=== PATIENT | female | born 1995 | race Caucasian/White ===

== ENCOUNTER → 2021-04-14 14:08 | Outpatient (BNVA) | payer OTHER, SELFPAY | PROVIDERS: Visit Provider Obstetrics & Gynecology | DX: O09.32 Supervision of pregnancy with insufficient antenatal care, second trimester (principal); Z3A.00 Weeks of gestation of pregnancy not specified | CPT/HCPCS: 80307; 83036; 84315; 85027; 86592; 86762; 86803; 86850; 86900; 87086; 87340; 87491; 87591; 87806 ==

== ENCOUNTER 2021-04-15 15:26 | Emergency (ER) | payer OTHER, SELFPAY ==
[2021-04-15 15:49] VITALS: BP 118/77; PULSE 75; RESP 18; TEMP 36.4; O2SAT 97; BMI 40.5
--- NOTE | 2021-04-15 16:54 | W.ED.BACK ---
HPI - Back Pain/Injury General: Chief Complaint: Back Pain/Injury Stated Complaint: 18 WKS PREG: FELL THIS AM,SHARP PAINS;P/OB SEE ER Time Seen by Provider: 04/15/21 16:54 History of Present Illness: HPI Narrative: 26-year-old female comes in today for concerns of low back pain and cramping after tripping over her dog this morning. Patient is 18 weeks . Patient reports that she has been feeling the fetus move. Patient came in due to her back pain. Patient contacted her [employer] OFFICER who recommended she be evaluated in the ER. Patient denies any abnormal bleeding or abnormal discharge from her vaginal area. This is patient's eighth with 5 live births. Review of Systems General: Reports: 10 or more systems reviewed and unremarkable except in HPI and below Musc: Reports: back pain PFS ED PFSH: Medical History (Updated 04/15/21 @ 17:12 by DEO Porter) Psychiatric care Family History (Updated 04/14/21 @ 14:15 by Joanna Ivory RN) Grandmother Clotting disorder maternal Grandfather Heart disease maternal great Denies family history of Colon cancer Ovarian cancer Diabetes Hyperlipidemia Breast cancer Anesthesia complication Bleeding disorder Hypertension Uterine cancer Thyroid condition Stroke Physical Exam Const: COMMON NORMALS: no acute distress and patient oriented x3 GENERAL APPEARANCE: cooperative HENMT: COMMON NORMALS: normocephalic HEAD & SCALP: normal to inspection and normocephalic MOUTH: Normal oral and palatal mucosa present Eye: GENERAL EYE: appearance normal, both eyes and all related structures Neck/C-Spine: COMMON NORMALS: full ROM Chest: COMMONS NORMALS: normal inspection of the chest Resp: COMMON NORMALS: normal respiratory effort EFFORT & INSPECTION: Yes able to speak in complete sentences Cardio: COMMON NORMALS: regular rate and regular rhythm RATE: regular rate RHYTHM: regular rhythm GI: COMMON NORMALS: non-tender : COMMON NORMALS: Yes no CVA tenderness BLADDER/KIDNEY EXAM: Yes no CVA tenderness Back/Pelvis: COMMON NORMALS: no CVA tenderness THORACIC SPINE/UPPER BACK: Yes normal to inspection LUMBAR SPINE/LOWER BACK: No lumbar spinal tenderness and Yes paraspinal muscle tenderness Extremity: COMMON NORMALS: normal to inspection Neuro: COMMON NORMALS: patient oriented x3 and moves all extremities Psych: COMMON NORMALS: mental status grossly normal and cooperative Skin: COMMON NORMALS: no rashes or lesions noted GENERAL SKIN EXAM: no rashes or lesions noted Course Vital Signs: Vital signs: Vital Signs Temperature 97.6 F 04/15/21 15:49 Pulse Rate 75 04/15/21 15:49 Respiratory Rate 18 04/15/21 15:49 Blood Pressure 118/77 04/15/21 15:49 Pulse Oximetry 97 04/15/21 15:49 MDM - Back Pain/Injury MDM Narrative: Medical decision making narrative: 26-year-old female comes in today with complaints of low back pain. Patient is 18 weeks and had tripped over her dog this morning. On exam patient has muscle tenderness but no midline spinal tenderness. heart tones were 140. Patient denies any vaginal bleeding or discharge. Differential diagnosis includes intervertebral disc injury, muscle strain, contusion. No spinal tenderness was noted I do not suspect a vertebral fracture or disc injury. Patient has mainly muscle pain. I reviewed the exam with patient with reassurance that the baby is very protected. I recommended that she monitor for abnormal discharge and bleeding and contractions. heart tones were 140 which was a good result for the age. Patient was recommended use ice and heat along with Tylenol for her pain. Patient was given 7 tablets of hydrocodone and a prescription for severe pain. No prior narcotic prescriptions were noted in the chart. Patient reported understanding of care plan and need for follow-up. Discharge Plan Discharge Patient Disposition: Home Clinical Impression: Fall on same level from tripping, Back pain affecting in second trimester Condition: Stable Prescriptions: New hydrocodone-acetaminophen 5-325 mg tablet 1 tab PO Q8H PRN (Reason: pain) Qty: 7 RF: 0 No Action One-A-Day -1 27 mg iron- 800 mcg-235 mg capsule PO RF: 0 Iron PO DAILY RF: 0 Discharge Orders: Discharge ED (Routine); Ordered 04/15/21 Ordered By: Mason Mcknight Discharge Diet: Usual diet Discharge Activity: Increase activity as tolerated Patient Instructions: Back Pain in Children (ED), Opioid Safety Activity Restrictions/Additional Instructions: Activity as tolerated. Use acetaminophen, 1000 mg every 8 hours, and ice or heat for pain relief. Gentle stretching and range of motion exercises. Use of hydrocodone tablet as needed for severe pain. Make sure to drink plenty of water with medication. Follow-up with [employer]ER for further instruction. Return to the ER for contractions, vaginal bleeding, or new concerns. Coding Level of Care Code ED Patented Hogshead Assembler for Markel Palacios
[2021-04-15] MEDS: HYDROcodone-acetaminophen 5-325 mg Tablet 1 TAB PO (17:49)
== END 2021-04-15 17:50 | disposition home or self-care (01) ==
PROVIDERS: Emergency Provider Nurse Practitioner Family
DX: O26.892 Other specified pregnancy related conditions, second trimester (principal); M54.50 Low back pain, unspecified; Z3A.18 18 weeks gestation of pregnancy; W01.0XXA Fall on same level from slipping, tripping and stumbling without subsequent striking against object, initial encounter
CPT/HCPCS: 99283

== ENCOUNTER 2021-05-02 11:06 | Emergency (ER) | payer OTHER, SELFPAY ==
--- NOTE | 2021-05-02 11:22 | ED_ITS ---
Documented by User: LEXY Kovacs 05/02/21 11:41 HPI - Fall General: Chief Complaint: Fall Stated Complaint: Fell; 21 weeks Time Seen by Provider: 05/02/21 11:31 Source: patient Mode of arrival: ambulatory Limitations: no limitations History of Present Illness: HPI Narrative: Patient is a 26-year-old female approximately 21 weeks here for evaluation following a fall. Patient states this morning she fell on a wet floor and fell onto her right side. She is complaining of right abdominal discomfort. She has a small amount of right rib pain and right hip pain. Patient has been ambulatory on the extremity without difficulty. She denies striking her head or LOC. No neck or back pain. MD complaint: fall Onset (ago): hour(s) Fall from: standing Fall witnessed: yes, by family Place fall occurred: home Loss of consciousness: None Prolonged down time: no Symptoms prior to fall: none Context: tripped/slipped Severity: mild Associated symptoms-after fall: Reports abdominal pain and chest pain (mild R rib pain); Denies difficulty walking, headache(s), lightheadedness or neck pain Review of Systems Card: Reports: chest pain (mild R rib pain); Denies: palpitations, irregular heart rhythm, edema, lightheadedness, syncope or pre-syncope Resp: Denies: dyspnea, productive cough, non-productive cough, wheezing, hemoptysis or chest congestion GI: Reports: abdominal pain; Denies: nausea, vomiting or diarrhea : Denies: flank pain Musc: Reports: joint pain (mild R hip pain); Denies: neck pain, back pain, extremity pain or limited range of motion Neuro: Denies: headache(s), numbness in extremities, weakness in extremities, sensory changes or difficulty walking [facility] ED PFSH: Medical History (Updated 05/02/21 @ 11:23 by LEXY Kovacs) Psychiatric care Family History (Updated 04/14/21 @ 14:15 by Joanna Ivory RN) Grandmother Clotting disorder maternal Grandfather Heart disease maternal great Denies family history of Colon cancer Ovarian cancer Diabetes Hyperlipidemia Breast cancer Anesthesia complication Bleeding disorder Hypertension Uterine cancer Thyroid condition Stroke Physical Exam Const: COMMON NORMALS: no acute distress, patient oriented x3, no limitations and alert NUTRITIONAL APPEARANCE: obese ORIENTATION/CONSCIOUSNESS: Yes awake, Yes oriented to person, Yes oriented to place and Yes oriented to time HENMT: COMMON NORMALS: normocephalic and atraumatic HEAD & SCALP: normocephalic and atraumatic Chest: COMMONS NORMALS: normal inspection of the chest OTHER: patient has extremely mild tenderness to R lateral lower ribs; no crepitus Resp: COMMON NORMALS: normal respiratory effort and clear to auscultation bilaterally AUSCULTATION: clear to auscultation bilaterally Cardio: COMMON NORMALS: regular rate and regular rhythm RATE: regular rate RHYTHM: regular rhythm GI: COMMON NORMALS: Normal to inspection, nondistended, normoactive bowel sounds present, Soft to palpation, No hepatosplenomegaly present and no masses INSPECTION: Yes normal to inspection and Yes gravid abdomen PALPATION: Yes Soft to palpation, Yes Tenderness to palpation present (GI) (mild R abdominal tenderness; no guarding), No Rigid due to palpation and Yes No hepatosplenomegaly present Extremity: COMMON NORMALS: normal to inspection and full ROM GENERAL: Yes normal exam except as noted Neuro: COMMON NORMALS: patient oriented x3, moves all extremities, no focal motor deficits, no sensory deficits noted and gait normal SE NSORIUM/ORIENTATION: Yes alert, Yes oriented to person, Yes oriented to place and Yes oriented to time Skin: TRAUMA: no lacerations or abrasions Course Vital Signs: Vital signs: Vital Signs Temperature 98.2 F 05/02/21 11:32 Pulse Rate 89 05/02/21 11:32 Respiratory Rate 16 05/02/21 11:32 Blood Pressure 130/79 05/02/21 11:32 Pulse Oximetry 100 05/02/21 11:32 MDM - Fall MDM Narrative: Medical decision making narrative: Patient has very minimal right hip tenderness. She has full range of motion and has been full weight bearing since fall without difficulty. She has very mild discomfort to her right ribs. On clinical exam I do not have any concern for rib fractures at this time. Lungs CTA. She has no shortness of breath. I do not feel any form of emergent imaging is necessary at this time. Patient will be discharged from the ED straight to OB for monitoring as she is 21 weeks . Discharge Plan Discharge Patient Disposition: Home Clinical Impression: Fall from slipping Qualifiers: Encounter type: initial encounter Qualified Code(s): W01.0XXA - Fall on same level from slipping, tripping and stumbling without subsequent striking against object, initial encounter Contusion of abdominal wall Qualifiers: Encounter type: initial encounter Qualified Code(s): S30.1XXA - Contusion of abdominal wall, initial encounter Condition: Stable Prescriptions: No Action One-A-Day -1 27 mg iron- 800 mcg-235 mg capsule PO RF: 0 Iron PO DAILY RF: 0 hydrocodone-acetaminophen 5-325 mg tablet 1 tab PO Q8H PRN (Reason: pain) Qty: 7 RF: 0 Discharge Orders: Discharge ED (Routine); Ordered 05/02/21 Ordered By: Debra Nam Activity Restrictions/Additional Instructions: As we discussed you are being discharged from the emergency department with directions to proceed straight to OB for monitoring. Coding Level of Care Code ED Financial Service Rep for Chg Fwd Exam Comprehensive Documented by User: Elmer Strange DO 05/04/21 11:00 HPI - Fall General: Chief Complaint: Fall Stated Complaint: Fell; 21 weeks Time Seen by Provider: 05/02/21 11:31 [facility] ED PFSH: Medical History (Updated 05/02/21 @ 11:23 by LEXY Kovacs) Psychiatric care Family History (Updated 04/14/21 @ 14:15 by Joanna Ivory RN) Grandmother Clotting disorder maternal Grandfather Heart disease maternal great Denies family history of Colon cancer Ovarian cancer Diabetes Hyperlipidemia Breast cancer Anesthesia complication Bleeding disorder Hypertension Uterine cancer Thyroid condition Stroke Course Vital Signs: Vital signs: Vital Signs Temperature 98.2 F 05/02/21 11:32 Pulse Rate 89 05/02/21 11:32 Respiratory Rate 16 05/02/21 11:32 Blood Pressure 130/79 05/02/21 11:32 Pulse Oximetry 100 05/02/21 11:32 MDM - Fall MDM Narrative: Medical decision making narrative: Chart reviewed and patient discussed with midlevel. Agree with assessment and plan. Discharge Plan Discharge Patient Disposition: Home Clinical Impression: Fall from slipping Qualifiers: Encounter type: initial encounter Qualified Code(s): W01.0XXA - Fall on same level from slipping, tripping and stumbling without subsequent striking against object, initial encounter Contusion of abdominal wall Qualifiers: Encounter type: initial encounter Qualified Code(s): S30.1XXA - Contusion of abdominal wall, initial encounter Condition: Stable Prescriptions: No Action One-A-Day -1 27 mg iron- 800 mcg-235 mg capsule PO RF: 0 Iron PO DAILY RF: 0 hydrocodone-acetaminophen 5-325 mg tablet 1 tab PO Q8H PRN (Reason: pain) Qty: 7 RF: 0 Discharge Orders: Discharge ED (Routine); Ordered 05/02/21 Ordered By: Debra Nam Activity Restrictions/Additional Instructions: As we discussed you are being discharged from the emergency department with directions to proceed straight to OB for monitoring. Coding Level of Care Code ED Financial Service Rep for Markel Fwd Exam Comprehensive
[2021-05-02 11:32] VITALS: BP 130/79; PULSE 89; RESP 16; TEMP 36.8; O2SAT 100
== END 2021-05-02 11:41 | disposition home or self-care (01) ==
LOC: ER 18:25
PROVIDERS: Emergency Provider Physician Assistant
DX: S30.1XXA Contusion of abdominal wall, initial encounter (principal); W01.0XXA Fall on same level from slipping, tripping and stumbling without subsequent striking against object, initial encounter; Y92.019 Unspecified place in single-family (private) house as the place of occurrence of the external cause
CPT/HCPCS: 99281

== ENCOUNTER 2021-05-02 11:40 | Outpatient (CLI) | payer OTHER, SELFPAY ==
[2021-05-02 12:04] VITALS: BP 131/74; PULSE 94
[2021-05-02 12:29] VITALS: BP 104/59; PULSE 89
[2021-05-02 12:42] VITALS: BMI 41.4
[2021-05-02 12:48] VITALS: BP 114/65; PULSE 77
[2021-05-02 13:00] VITALS: BP 114/65; PULSE 77; RESP 18
== END 2021-05-02 13:06 | disposition home or self-care (01) ==
LOC: OPOB 11:51 → OBGYN 11:52
PROVIDERS: Visit Provider Obstetrics & Gynecology
DX: O26.899 Other specified pregnancy related conditions, unspecified trimester (principal); Z3A.00 Weeks of gestation of pregnancy not specified; Z91.81 History of falling
CPT/HCPCS: 59025; 99211

== ENCOUNTER 2021-05-13 22:43 | Emergency (ER) | payer OTHER, SELFPAY ==
[2021-05-13 23:12] VITALS: BP 112/76; PULSE 100; RESP 22; TEMP 36.4; O2SAT 99; BMI 40.7
--- NOTE | 2021-05-14 00:24 | XRR_ITS ---
PROCEDURE INFORMATION: Exam: XR Chest Exam date and time: 05/14/2021 12:24 AM Age: 26 years old Clinical indication: Pain; Shortness of breath; Left-sided; Additional info: SOB TECHNIQUE: Imaging protocol: XR of the chest. Views: 1 view. COMPARISON: No relevant prior studies available. FINDINGS: Lungs: Unremarkable. No consolidation. Pleural spaces: Unremarkable. No pleural effusion. No pneumothorax. Heart/Mediastinum: Unremarkable. No cardiomegaly. Bones/joints: Unremarkable. XR/XR chest 1V portable [id number] IMPRESSION: No acute findings.
--- NOTE | 2021-05-14 00:24 | ECG_ITS ---
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 Measurements Intervals [place] Rate: 72 P: 1 UT: 167 QRS: -1 QRSD: 93 T: 0 QT: 388 QTc: 427 Interpretive Statements SINUS RHYTHM VOLTAGE CRITERIA FOR LVH [MEETS CRITERIA IN ONE OF: R(aVL), S(V1), R(V5), R(V5/V6)+S(V1)] No previous ECG available for comparison Electronically Signed On 05-14-2021 22:01:31 EVENT REPRESENTATIVE by Navi Olsen M.D. [email or web address] [email or web address] [email or web address].[employer]/[id number]
--- NOTE | 2021-05-14 01:52 | W.ED.CHESTPA ---
HPI - Chest Pain General: Chief Complaint: Chest Pain Stated Complaint: chest tightness, sob, 22 wks Time Seen by Provider: 05/14/21 01:23 Source: patient Mode of arrival: ambulatory Limitations: no limitations History of Present Illness: HPI narrative: 26-year-old female is currently 22 weeks states throughout the day she been having increasing dyspnea with chance pain especially inspirational chest pain. He states that any deep breaths she just has a sharp pain in her chest denies any recent cough or illness denies any vomiting or diarrhea. States pain is improved she just takes shallow breaths. No recent long trips no history of blood clots no recent surgery. Associated symptoms: Reports dyspnea; Deny abdominal pain, fever(s), nausea or vomiting Review of Systems Const: Denies: fever(s), chills, body aches or change in appetite Eyes: Denies: blurry vision or eye discomfort ENMT: Denies: throat pain or dental pain Card: Reports: chest pain Resp: Reports: dyspnea and pain on inspiration GI: Denies: abdominal pain, nausea, vomiting or diarrhea : Denies: dysuria Musc: Denies: neck pain or back pain Skin/Breast: Denies: rash Neuro: Denies: headache(s) Psych: Denies: depression [place]/Lymph: Denies: easy bruising All/Imm: Denies: urticaria PFSH ED PFSH: Medical History Psychiatric care Family History Grandmother Clotting disorder maternal Grandfather Heart disease maternal great Denies family history of Colon cancer Ovarian cancer Diabetes Hyperlipidemia Breast cancer Anesthesia complication Bleeding disorder Hypertension Uterine cancer Thyroid condition Stroke Physical Exam Const: COMMON NORMALS: no acute distress, patient oriented x3 and healthy appearing HENMT: COMMON NORMALS: normocephalic and atraumatic HEAD & SCALP: normocephalic and atraumatic Eye: COMMON NORMALS: Equal, round and reactive pupils present and EOMs intact bilaterally PUPIL: Yes Equal, round and reactive pupils present Neck/C-Spine: COMMON NORMALS: full ROM and supple Chest: COMMONS NORMALS: normal inspection of the chest and normal palpation of entire chest wall Resp: COMMON NORMALS: normal respiratory effort, No retractions, No use of accessory muscles and clear to auscultation bilaterally AUSCULTATION: clear to auscultation bilaterally Cardio: COMMON NORMALS: regular rate, regular rhythm and No murmurs present (Cardio) RATE: regular rate RHYTHM: regular rhythm GI: COMMON NORMALS: Normal to inspection, nondistended, normoactive bowel sounds present, Soft to palpation, non-tender and no masses PALPATION: Yes Soft to palpation Extremity: COMMON NORMALS: normal to inspection and full ROM Neuro: COMMON NORMALS: patient oriented x3, moves all extremities and no focal motor deficits Psych: COMMON NORMALS: mental status grossly normal, Normal thought process present and cooperative THOUGHT PROCESS: Normal thought process present Skin: COMMON NORMALS: no rashes or lesions noted and no wounds GENERAL SKIN EXAM: no rashes or lesions noted Course Vital Signs: Vital signs: Vital Signs Temperature 97.6 F 05/13/21 23:12 Pulse Rate 100 05/13/21 23:12 Respiratory Rate 22 H 05/13/21 23:12 Blood Pressure 112/76 05/13/21 23:12 Pulse Oximetry 99 05/13/21 23:12 MDM - Chest Pain MDM Narrative: Medical decision making narrative: Patient presents here with chest pain is atypical in nature patient's EKG x-ray are normal. Patient's D-dimer is negative no signs of pulmonary rhythm patient is stable for discharge follow-up with OB and return if worsening. Lab Data: Labs: Lab Results 05/14/21 05/14/21 05/14/21 01:47 02:00 02:00 WBC 10.1 10^3/uL H 10 ^3/uL (4.0-10.0) RBC 3.69 10^6/uL L 10 ^6/uL (4.1-5.3) Hgb 10.7 g/dL L g/dL (11.5-15.3) Hct 32.0 % L % (37.0-47.0) MCV 86.7 fl fl (81-99) MCH 29.0 pg pg (28.0-34.0) MCHC 33.4 g/dL g/dL (30.0-36.0) RDW 15.9 % H % (12.1-15.1) Plt Count 158 10^3/cmm 10^3 /cmm (130-400) MPV 10.9 fL H fL (7.4-10.4) Neut % (Auto) 70.0 % % Lymph % (Auto) 22.2 % % [place] % (Auto) 5.1 % % Eos % (Auto) 1.7 % % Baso % (Auto) 0.3 % % Neut # (Auto) 7.05 10^3/uL 10^3 /uL (1.8-7.7) Lymph # (Auto) 2.2 10^3/uL 10^3/ uL (0.8-4.8) [place] # (Auto) 0.5 10^3/uL 10^3/ uL (0.2-0.9) Eos # (Auto) 0.2 10^3/uL 10^3/ uL (0.0-0.8) Baso # (Auto) 0.0 10^3/uL 10^3/ uL (0.0-0.1) Nucleated RBC % (a uto) 0 % % Nucleated RBCs # 0.0 /100WBC /100W BC D-Dimer 0.39 ug/mIFEU ug/ mIFEU (0-0.59) Sodium Potassium Chloride Carbon Dioxide Anion Gap BUN Creatinine GFR Calculation Glucose Calculated Osmolal ity Calcium Total Bilirubin AST ALT Alkaline Phosphata se Total Protein Albumin Globulin SARS-CoV-2 Ag (Rap id) Negative (Negative) 05/14/21 02:00 WBC RBC Hgb Hct MCV MCH MCHC RDW Plt Count MPV Neut % (Auto) Lymph % (Auto) [place] % (Auto) Eos % (Auto) Baso % (Auto) Neut # (Auto) Lymph # (Auto) [place] # (Auto) Eos # (Auto) Baso # (Auto) Nucleated RBC % (a uto) Nucleated RBCs # D-Dimer Sodium 136 mmol/L mmol/L (136-145) Potassium 3.3 mmol/L L mmol /L (3.5-5.1) Chloride 104 mmol/L mmol/L (98-107) Carbon Dioxide 22 mmol/L mmol/L (22-29) Anion Gap 13.3 (5-19) BUN 7 mg/dL mg/dL (6-20) Creatinine 0.4 mg/dL L mg/dL (0.5-0.9) GFR Calculation 190.1 mL/min H mL /min (90-130) Glucose 80 mg/dL mg/dL (65-115) Calculated Osmolal ity 279 mOsm/kg L mOs m/kg (285-295) Calcium 7.9 mg/dL L mg/dL (8.5-10.5) Total Bilirubin 0.2 mg/dL mg/dL (0.15-1.2) AST 8 U/L U/L (0-32) ALT 7 U/L U/L (0-33) Alkaline Phosphata se 70 IU/L IU/L (35-105) Total Protein 6.3 g/dL L g/dL (6.6-8.7) Albumin 3.3 g/dL L g/dL (3.5-5.2) Globulin 3.0 g/dL g/dL (1.3-4.6) SARS-CoV-2 Ag (Rap id) Imaging Data^: CXR: Attestation: I personally reviewed and interpreted this imaging study as follows: My impression: no acute findings EKG Data^: EKG 1: Attestation: I personally reviewed and interpreted this EKG as follows: EKG interpretation date: 05/14/21 EKG interpretation time: 01:48 Interpretation: nsr hr [address] or t wave abnormalities qrs 93 qtc 413 Discharge Plan Discharge Patient Disposition: Home Clinical Impression: Chest pain Qualifiers: Chest pain type: unspecified Qualified Code(s): R07.9 - Chest pain, unspecified Condition: Stable Prescriptions: No Action One-A-Day -1 27 mg iron- 800 mcg-235 mg capsule PO RF: 0 Iron PO DAILY RF: 0 hydrocodone-acetaminophen 5-325 mg tablet 1 tab PO Q8H PRN (Reason: pain) Qty: 7 RF: 0 Discharge Orders: Discharge ED (Routine); Ordered 05/14/21 Ordered By: Pricilla Astorga Discharge Diet: Advance as tolerated Discharge Activity: Resume usual activity Patient Instructions: Chest Pain (ED) Coding Level of Care Code ED Identity Management Developer for Chg Fwd Exam Comprehensive
[2021-05-14] MEDS: acetaminophen 500 mg Tablet 1000 MG PO (02:07)
[2021-05-14 02:10] LABS: Basophils % 0.3 %; Eosinophils # 0.2 10^3/uL (0.0-0.8); Eosinophils % 1.7 %; Hemoglobin 10.7 g/dL (11.5-15.3); Lymphocytes # 2.2 10^3/uL (0.8-4.8); Lymphocytes % 22.2 %; Mean Corpuscular HGB Conc 33.4 g/dL (30.0-36.0); Mean Corpuscular Volume 86.7 fl (81-99); Mean Platelet Volume 10.9 fL (7.4-10.4); Monocytes # 0.5 10^3/uL (0.2-0.9); Monocytes % 5.1 %; Neutrophils # 7.05 10^3/uL (1.8-7.7); Nucleated Red Blood Cells % 0 %; Platelet Count 158 10^3/cmm (130-400); Red Blood Count 3.69 10^6/uL (4.1-5.3); Red Cell Distribution Width 15.9 % (12.1-15.1); White Blood Count 10.1 10^3/uL (4.0-10.0)
[2021-05-14 02:23] LABS: SARS Covid-2 Antigen Negative (Negative)
[2021-05-14 02:38] LABS: Alanine Aminotransferase 7 U/L (0-33); Albumin Level 3.3 g/dL (3.5-5.2); Alkaline Phosphatase 70 IU/L (35-105); Anion Gap 13.3 (5-19); Aspartate Amino Transferase 8 U/L (0-32); Blood Urea Nitrogen 7 mg/dL (6-20); Calcium 7.9 mg/dL (8.5-10.5); Carbon Dioxide 22 mmol/L (22-29); Chloride 104 mmol/L (98-107); Glomerular Filtration Rate 190.1 mL/min (90-130); Glucose 80 mg/dL (65-115); Osmolality Calculated 279 mOsm/kg (285-295); Potassium 3.3 mmol/L (3.5-5.1); Sodium 136 mmol/L (136-145); Total Bilirubin 0.2 mg/dL (0.15-1.2); Total Protein 6.3 g/dL (6.6-8.7)
[2021-05-14 02:56] LABS: D Dimer 0.39 ug/mIFEU (0-0.59)
== END 2021-05-14 03:02 | disposition home or self-care (01) ==
PROVIDERS: Emergency Provider Emergency Medicine
DX: R07.9 Chest pain, unspecified (principal); Z20.822 Contact with and (suspected) exposure to COVID-19
CPT/HCPCS: 71045; 80053; 85025; 85378; 87426; 93005; 99283

== ENCOUNTER 2021-05-21 10:32 | Outpatient (CLI) | payer OTHER, SELFPAY ==
[2021-05-21 12:38] LABS: Glucose Tolerance 1 Hour Gest 149 mg/dL
== END 2021-05-21 10:33 | disposition home or self-care (01) ==
LOC: LAB 10:40
PROVIDERS: Visit Provider Obstetrics & Gynecology
DX: Z34.90 Encounter for supervision of normal pregnancy, unspecified, unspecified trimester (principal)
CPT/HCPCS: 82950; 84315

== ENCOUNTER → 2021-05-26 09:25 | Outpatient (BNVA) | payer OTHER, SELFPAY | PROVIDERS: Visit Provider Obstetrics & Gynecology | DX: O09.32 Supervision of pregnancy with insufficient antenatal care, second trimester (principal) | CPT/HCPCS: 82950 ==

== ENCOUNTER 2021-06-08 15:37 | Emergency (ER) | payer OTHER, SELFPAY ==
--- NOTE | 2021-06-08 16:07 | ED_ITS ---
Documented by User: DEO Shore 06/08/21 16:08 HPI - COVID General: Chief Complaint: General Medical Stated Complaint: cough, sore throat,muscle aches,sob, Time Seen by Provider: 06/08/21 20:04 History of Present Illness: HPI Narrative: Patient presents here with to 3-day history of body aches sore throat congestion and cough. Has felt nauseous. But she is in her second trimester also. Feels that she definitely has strep she says she gets that yearly and her throat feels like it is on fire. She denies any loss of taste or smell headache or diarrhea. MD complaint: has COVID symptoms Prior covid testing: yes, results known (05-14-21 none detected) Prior testing date: 05/14/21 COVID 19 common symptoms: positive fever(s), body aches, throat pain, nasal congestion and nausea Onset (ago): day(s) Severity: mild Pertinent comorbid conditions: other (Patient second trimester sees Dr. Lai) COVID Results: SARS-CoV-2 Antigen (Rapid) Negative (Negative) 05/14/21 01:47 05/14/21 SARS-CoV-2 RNA (RT-PCR) Pending 06/08/21 16:35 06/08/21 Review of Systems Const: Reports: fever(s) and body aches ENMT: Reports: throat pain and nasal congestion GI: Reports: nausea PFSH ED PFSH: Medical History Psychiatric care Family History Grandmother Clotting disorder maternal Grandfather Heart disease maternal great Denies family history of Colon cancer Ovarian cancer Diabetes Hyperlipidemia Breast cancer Anesthesia complication Bleeding disorder Hypertension Uterine cancer Thyroid condition Stroke Course Vital Signs: Vital signs: Vital Signs Temperature 98.7 F 06/08/21 22:16 Pulse Rate 109 H 06/08/21 22:16 Respiratory Rate 20 H 06/08/21 22:16 Blood Pressure 115/68 06/08/21 22:16 Pulse Oximetry 99 06/08/21 22:16 MDM - COVID Lab Data: Labs: Lab Results 06/08/21 06/08/21 16:35 16:35 Influenza Type A A g Negative (Negative) Influenza Type B A g Negative (Negative) Group A Strep Rapi d Negative (Negative) COVID Results: SARS-CoV-2 Antigen (Rapid) Negative (Negative) 05/14/21 01:47 05/14/21 SARS-CoV-2 RNA (RT-PCR) Pending 06/08/21 16:35 06/08/21 Discharge Plan Discharge Patient Disposition: Home Clinical Impression: Viral syndrome, COVID-19 virus test result unknown Condition: Stable Prescriptions: No Action One-A-Day -1 27 mg iron- 800 mcg-235 mg capsule PO RF: 0 Iron PO DAILY RF: 0 famotidine [Pepcid] 40 mg tablet 40 mg PO BID Qty: 60 RF: 6 hydrocodone-acetaminophen 5-325 mg tablet 1 tab PO Q8H PRN (Reason: pain) Qty: 7 RF: 0 Discharge Orders: Discharge ED (Routine); Ordered 06/08/21 Ordered By: Doe Gautam Discharge Diet: Regular Discharge Activity: Limit activity as instructed Patient Instructions: Viral Syndrome (ED), COVID-19: Slow the Coronavirus Spread (ED) Activity Restrictions/Additional Instructions: Follow-up with OB provider in her next scheduled appointment on June 16. COVID-19 testing was done today and results are pending. The results should be back within the next 36 to 48 hours. You can call [facility] to get test results. Take [id number] Tylenol for any fevers or pain. Make sure you drink plenty of fluids and stay hydrated. Return to the ER or your medical provider if condition worsens. Please read and understand discharge instructions. Thank you for choosing [facility] for your healthcare needs today. Please realize this is an emergency room and that we are providing you with a medical screening exam and this may not be complete and all inclusive of all the testing and or work up that you may need to determine your ailment or severity of your illness. It is very important that you follow up as instructed or that you return to the Emergency Department should you have concerns or if your condition changes or worsens in any way. Stand Alone Forms: Work/School Release Coding Level of Care Code ED Fire Protection Specialist for Chg Fwd Exam Comprehensive Documented by User: LEXY Tyler 06/08/21 23:50 HPI - COVID General: Chief Complaint: General Medical Stated Complaint: cough, sore throat,muscle aches,sob, Time Seen by Provider: 06/08/21 20:04 History of Present Illness: HPI Narrative: Patient is a 26 weeks 26-year-old female comes to the ED with Covid symptoms. She says her symptoms started approximately 2 days ago. She has a sore throat, body aches, chills, productive cough, fatigue. She has some nausea but says that is due to her and says she has had no acute change in nausea. She denies any problems with such as abdominal pain, vaginal discharge, vaginal bleeding. She saw her OB doctor back on May 26 and her next appointment with them on June 16. COVID 19 common symptoms: positive chills, non-productive cough, fatigue, body aches, headache(s) and throat pain; negative fever(s), cough, productive cough, dyspnea, nasal congestion, nausea, vomiting or diarrhea COVID 19 other sytmptoms: negative chest pain COVID Results: SARS-CoV-2 Antigen (Rapid) Negative (Negative) 05/14/21 01:47 05/14/21 SARS-CoV-2 RNA (RT-PCR) Pending 06/08/21 16:35 06/08/21 Review of Systems Narrative: reports generalized pain Const: Reports: chills, body aches and fatigue; Denies: fever(s) Eyes: Denies: change in vision or eye discomfort ENMT: Reports: throat pain and nasal discharge; Denies: odynophagia or nasal congestion Card: Denies: chest pain, palpitations, edema, swelling of feet/ankles, dyspnea on exertion or orthopnea Resp: Reports: non-productive cough; Denies: dyspnea or productive cough GI: Denies: abdominal pain, nausea, vomiting, diarrhea, constipation or hematochezia : Denies: flank pain, dysuria or hematuria Musc: Denies: neck pain, back pain or extremity swelling Skin/Breast: Denies: rash or new lesions Neuro: Reports: headache(s); Denies: numbness in extremities or weakness in extremities PFS ED PFSH: Medical History Psychiatric care Family History Grandmother Clotting disorder maternal Grandfather Heart disease maternal great Denies family history of Colon cancer Ovarian cancer Diabetes Hyperlipidemia Breast cancer Anesthesia complication Bleeding disorder Hypertension Uterine cancer Thyroid condition Stroke Physical Exam Const: COMMON NORMALS: no acute distress, patient oriented x3 and alert GENERAL APPEARANCE: cooperative and comfortable HENMT: COMMON NORMALS: normocephalic HEAD & SCALP: normocephalic MOUTH: Normal oral and palatal mucosa present THROAT: posterior oropharynx normal and uvula midline Neck/C-Spine: COMMON NORMALS: supple GENERAL: Yes normal visual inspection Resp: COMMON NORMALS: normal respiratory effort, No retractions, No use of accessory muscles and clear to auscultation bilaterally AUSCULTATION: clear to auscultation bilaterally Cardio: COMMON NORMALS: regular rate, regular rhythm, S1 normal heart sound present, S2 normal heart sound present, No gallops present (Cardio), No clicks present (Cardio), No murmurs present (Cardio) and Peripheral pulses 2+ throughout RATE: regular rate RHYTHM: regular rhythm HEART SOUNDS: S1 normal heart sound present and S2 normal heart sound present PERIPHERAL PULSES: Peripheral pulses 2+ throughout GI: COMMON NORMALS: Normal to inspection, nondistended, normoactive bowel sounds present, Soft to palpation, non-tender and no masses PALPATION: Yes Soft to palpation : COMMON NORMALS: Yes no CVA tenderness BLADDER/KIDNEY EXAM: Yes no CVA tenderness Back/Pelvis: COMMON NORMALS: no CVA tenderness Extremity: COMMON NORMALS: normal to inspection Neuro: COMMON NORMALS: patient oriented x3 and moves all extremities SENSORIUM/ORIENTATION: Yes alert Skin: GENERAL SKIN EXAM: dry skin Course ED course: Due to high volume of patients here in the ED we did not have any open rooms for patient. I saw patient out in the waiting room and she is in stable condition. Patient had no OB complaints here in the ED. Since she was in the waiting room I was not able to perform heart Doppler due to privacy concerns in an open waiting room. I told patient that when she discharges from the ED to go immediately over to the OB unit and talk with them to see if there is any testing or monitoring they want to do of patient and baby. Patient understood and agreed with plan to follow-up with OB unit after discharge. Vital Signs: Vital signs: Vital Signs Temperature 98.7 F 06/08/21 22:16 Pulse Rate 109 H 06/08/21 22:16 Respiratory Rate 20 H 06/08/21 22:16 Blood Pressure 115/68 06/08/21 22:16 Pulse Oximetry 99 06/08/21 22:16 MDM - COVID MDM Narrative: Medical decision making narrative: Patient is a 26-year-old female that is 26 weeks comes to the ED with Covid symptoms. She has no complaints and denies any abdominal pain, vaginal bleeding, vaginal discharge. Vitals stable. Patient appears nontoxic and in no acute distress or pain. Rest of exam is benign. Influenza was negative, strep negative and Covid test was sent out and is pending. Patient appears stable for discharge and was diagnosed with viral syndrome. Due to high volume of patients here in the ED we did not have any open rooms for patient. I saw patient out in the waiting room and she is in stable condition. Patient had no OB complaints here in the ED. Since she was in the waiting room I was not able to perform heart Doppler due to privacy concerns in an open waiting room. I told patient that when she discharges from the ED to go immediately over to the OB unit and talk with them to see if there is any testing or monitoring they want to do of patient and baby. Patient understood and agreed with plan to follow-up with OB unit after discharge. Lab Data: Attestation: I reviewed the patient's lab results. Labs: Lab Results 06/08/21 06/08/21 16:35 16:35 Influenza Type A A g Negative (Negative) Influenza Type B A g Negative (Negative) Group A Strep Rapi d Negative (Negative) COVID Results: SARS-CoV-2 Antigen (Rapid) Negative (Negative) 05/14/21 01:47 05/14/21 SARS-CoV-2 RNA (RT-PCR) Pending 06/08/21 16:35 06/08/21 Discharge Plan Discharge Patient Disposition: Home Clinical Impression: Viral syndrome, COVID-19 virus test result unknown Condition: Stable Prescriptions: No Action One-A-Day -1 27 mg iron- 800 mcg-235 mg capsule PO RF: 0 Iron PO DAILY RF: 0 famotidine [Pepcid] 40 mg tablet 40 mg PO BID Qty: 60 RF: 6 hydrocodone-acetaminophen 5-325 mg tablet 1 tab PO Q8H PRN (Reason: pain) Qty: 7 RF: 0 Discharge Orders: Discharge ED (Routine); Ordered 06/08/21 Ordered By: Doe Gautam Discharge Diet: Regular Discharge Activity: Limit activity as instructed Patient Instructions: Viral Syndrome (ED), COVID-19: Slow the Coronavirus Spread (ED) Activity Restrictions/Additional Instructions: Follow-up with OB provider in her next scheduled appointment on June 16. COVID-19 testing was done today and results are pending. The results should be back within the next 36 to 48 hours. You can call [facility] to get test results. Take [id number] Tylenol for any fevers or pain. Make sure you drink plenty of fluids and stay hydrated. Return to the ER or your medical provider if condition worsens. Please read and understand discharge instructions. [facility] you for [facility] your [facility] needs today. Please realize this is an emergency room and that we are providing you with a medical screening exam and this may not be complete and all inclusive of all the testing and or work up that you may need to determine your ailment or severity of your illness. It is very important that you follow up as instructed or that you return to the Emergency Department should you have concerns or if your condition changes or worsens in any way. Stand Alone Forms: Work/School Release Coding Level of Care Code ED Fire Protection Specialist for Markel Fwzita Exam Comprehensive
[2021-06-08 16:30] VITALS: BP 121/77; PULSE 112; RESP 20; TEMP 37.1; O2SAT 98; BMI 41.9
[2021-06-08 17:47] LABS: Influenza A by IFA Negative (Negative); Influenza B by IFA Negative (Negative)
[2021-06-08 21:33] LABS: Rapid Strep A Test Negative (Negative)
[2021-06-08 22:11] VITALS: BP 115/68; PULSE 109; RESP 20; TEMP 37.1; O2SAT 99
[2021-06-08] MEDS: HYDROcodone-acetaminophen 5-325 mg Tablet 1 TAB PO (22:11)
[2021-06-08 22:16] VITALS: BP 115/68; PULSE 109; RESP 20; TEMP 37.1; O2SAT 99
[2021-06-09 18:28] LABS: Quest SARS-CoV-2 RNA DETECTED (NOT DETECTED)
--- NOTE | 2021-06-10 15:42 | PC.NURSE ---
Pt informed of Positive COVID test
== END 2021-06-08 22:18 | disposition home or self-care (01) ==
PROVIDERS: Nurse Practitioner Family; Emergency Provider Physician Assistant
DX: U07.1 COVID-19 (principal)
CPT/HCPCS: 87081; 87635; 87804; 87880; 99283

== ENCOUNTER 2021-06-08 22:32 | Outpatient (CLI) | payer OTHER, SELFPAY ==
[2021-06-08] VITALS (21 sets, daily range): BP systolic 74–164; BP diastolic 40–97; PULSE 77–120; RESP 16; O2SAT 92–100; BMI 40.5
== END 2021-06-08 23:55 | disposition home or self-care (01) ==
LOC: OPOB 22:32 → OBGYN 22:33
PROVIDERS: Visit Provider Obstetrics & Gynecology
DX: O26.899 Other specified pregnancy related conditions, unspecified trimester (principal); Z3A.00 Weeks of gestation of pregnancy not specified; R52 Pain, unspecified; R50.9 Fever, unspecified
CPT/HCPCS: 59025; 99211

== ENCOUNTER → 2021-06-16 08:13 | Outpatient (BNVA) | payer OTHER, SELFPAY | PROVIDERS: Visit Provider Obstetrics & Gynecology | DX: O09.32 Supervision of pregnancy with insufficient antenatal care, second trimester (principal); Z3A.00 Weeks of gestation of pregnancy not specified | CPT/HCPCS: 84315; 85025 ==

== ENCOUNTER → 2021-07-17 09:39 | Outpatient (BNVA) | payer OTHER, SELFPAY | PROVIDERS: Visit Provider Obstetrics & Gynecology | DX: Z34.90 Encounter for supervision of normal pregnancy, unspecified, unspecified trimester (principal); Z3A.00 Weeks of gestation of pregnancy not specified | CPT/HCPCS: 81000 ==

== ENCOUNTER → 2021-08-11 10:09 | Outpatient (BNVA) | payer OTHER, SELFPAY | PROVIDERS: Visit Provider Obstetrics & Gynecology | DX: Z34.90 Encounter for supervision of normal pregnancy, unspecified, unspecified trimester (principal) | CPT/HCPCS: 76815; 81000 ==

== ENCOUNTER 2021-08-14 08:39 | Outpatient (CLI) | payer OTHER, SELFPAY ==
[2021-08-14 10:33] LABS: Glucose Fasting Gestational 93
[2021-08-14 11:21] LABS: Glucose 1 Hour 186 mg/dL
[2021-08-14 12:48] LABS: Glucose 2 Hour 111 mg/dL
[2021-08-14 13:19] LABS: Glucose 3 Hour 80 mg/dL
== END 2021-08-14 08:40 | disposition home or self-care (01) ==
LOC: LAB 08:51
PROVIDERS: Visit Provider Obstetrics & Gynecology Maternal & Fetal Medicine
DX: R73.09 Other abnormal glucose (principal)
CPT/HCPCS: 36415; 82951; 82952

== ENCOUNTER 2021-08-18 20:43 | Outpatient (CLI) | payer OTHER, SELFPAY ==
[2021-08-18] VITALS (12 sets, daily range): BP systolic 107–134; BP diastolic 56–83; PULSE 89–106; RESP 16–17; BMI 42.5
[2021-08-18] MEDS: lactated ringers 1,000 ML 999 ML IV (21:52)
[2021-08-18 21:54] LABS: Add Urine Culture? Yes; Bacteria Urine 2+ /hpf; Bilirubin Urine Neg (Negative); Blood Urine Neg (Negative); Glucose Urine UA Norm (Normal); Ketones Urine Negative (Negative); Leukocyte Esterase Urine Negative (Negative); Nitrate Urine Negative (Negative); Protein Urine Neg (Negative); RBC Urine 0-4 /hpf (0-2); Urine Appearance Clear (CLEAR); Urine Color Yellow (Yellow); Urobilinogen Urine Norm (Negative); WBC Urine 0-4 /hpf (0-5); pH Urine 6.5 (5-7)
[2021-08-18 22:01] LABS: Glucose Point of Care 95 mg/dL (70-110)
[2021-08-18] MEDS: acetaminophen 325 mg Tablet 1000 MG PO (22:20)
== END 2021-08-18 23:28 | disposition home or self-care (01) ==
LOC: OPOB 20:51 → OBGYN 20:52
PROVIDERS: Visit Provider Obstetrics & Gynecology
DX: O26.899 Other specified pregnancy related conditions, unspecified trimester (principal); Z3A.00 Weeks of gestation of pregnancy not specified; R10.9 Unspecified abdominal pain
CPT/HCPCS: 36415; 36416; 59025; 81001; 82962; 84315; 87081; 87086; 99211

== ENCOUNTER 2021-08-26 13:07 | Outpatient (CLI) | payer OTHER, SELFPAY ==
[2021-08-26 13:12] VITALS: BP 123/76; PULSE 96
[2021-08-26 13:27] VITALS: BP 114/59; PULSE 89
[2021-08-26 13:31] VITALS: RESP 18
[2021-08-26 13:42] VITALS: BP 107/57; PULSE 96
[2021-08-26 13:58] VITALS: BP 115/57; PULSE 93
== END 2021-08-26 14:18 | disposition home or self-care (01) ==
LOC: OPOB 13:08 → OBGYN 13:08
PROVIDERS: Visit Provider Obstetrics & Gynecology
DX: O36.8190 Decreased fetal movements, unspecified trimester, not applicable or unspecified (principal); M54.9 Dorsalgia, unspecified; R10.9 Unspecified abdominal pain
CPT/HCPCS: 59025; 99211

== ENCOUNTER 2021-08-28 12:55 | Outpatient (CLI) | payer OTHER, SELFPAY ==
[2021-08-28] VITALS (10 sets, daily range): BP systolic 91–121; BP diastolic 53–78; PULSE 81–108; RESP 17; BMI 43.0
[2021-08-28 14:03] LABS: Nitrazine Paper, PH Negative
[2021-08-28 14:10] LABS: Actim Prom Negative
== END 2021-08-28 17:12 | disposition home or self-care (01) ==
LOC: OPOB 13:03 → OBGYN 13:04
PROVIDERS: Visit Provider Obstetrics & Gynecology
DX: O26.899 Other specified pregnancy related conditions, unspecified trimester (principal); Z3A.00 Weeks of gestation of pregnancy not specified; R10.2 Pelvic and perineal pain; N89.8 Other specified noninflammatory disorders of vagina
CPT/HCPCS: 59025; 83986; 84112; 99211

== ENCOUNTER → 2021-09-04 08:03 | Outpatient (BNVA) | payer OTHER, SELFPAY | PROVIDERS: Visit Provider Obstetrics & Gynecology | DX: O09.33 Supervision of pregnancy with insufficient antenatal care, third trimester (principal); Z3A.00 Weeks of gestation of pregnancy not specified | CPT/HCPCS: 81000 ==

== ENCOUNTER 2021-09-06 06:16 | Inpatient (IN) | payer OTHER, SELFPAY ==
[2021-09-06] VITALS (92 sets, daily range): BP systolic 87–127; BP diastolic 56–78; PULSE 48–108; RESP 16–18; TEMP 36.6–37; O2SAT 89–100; BMI 42.5
[2021-09-06] MEDS: lactated ringers 1,000 ML 999 ML IV ×2 (06:26→11:47)
[2021-09-06 07:15] LABS: Basophils % 0.4 %; Eosinophils # 0.1 10^3/uL (0.0-0.8); Eosinophils % 1.8 %; Hematocrit 28.8 % (37.0-47.0); Hemoglobin 9.3 g/dL (11.5-15.3); Lymphocytes # 1.8 10^3/uL (0.8-4.8); Lymphocytes % 23.5 %; Mean Corpuscular HGB Conc 32.3 g/dL (30.0-36.0); Mean Corpuscular Hemoglobin 27.5 pg (28.0-34.0); Mean Corpuscular Volume 85.2 fl (81-99); Mean Platelet Volume 11.6 fL (7.4-10.4); Monocytes # 0.5 10^3/uL (0.2-0.9); Monocytes % 6.8 %; Neutrophils # 5.18 10^3/uL (1.8-7.7); Neutrophils % 66.7 %; Nucleated Red Blood Cells % 0 %; Platelet Count 159 10^3/cmm (130-400); Red Blood Count 3.38 10^6/uL (4.1-5.3); Red Cell Distribution Width 15.3 % (12.1-15.1); White Blood Count 7.8 10^3/uL (4.0-10.0)
[2021-09-06] MEDS: miSOPROStol 100 mcg tablet 25 MCG VAGINAL (07:17)
[2021-09-06] MEDS: dextrose 5%-lactated ringers 1,000 ML 125 ML IV ×2 (08:50→23:02)
[2021-09-06] MEDS: oxytocin 30 UNIT/500 ML BAG 600 UNIT IV (11:47)
[2021-09-06] MEDS: famotidine 20 mg/2 mL INJ IVP (11:48)
[2021-09-06] MEDS: metoclopramide 5 mg/mL SDV 2 mL 10 MG IVP (11:48)
[2021-09-06] MEDS: citric acid-sodium citrate 30 mL UDC PO (11:48)
[2021-09-06] MEDS: clindamycin 900 MG/50 ML PREMIX 100 MG IV (11:54)
--- NOTE | 2021-09-06 12:01 | P.HPUD_ITS ---
Surgery/Procedure H&P Update DATE OF PROCEDURE: September 06, 2021 DATE H&P PERFORMED: 08/18/21 H&P UPDATE INFORMATION: I have reviewed H&P completed within last 30 days, I have examined patient prior to procedure, Changes to prior documentation as noted here and [place] [facility] [place] indicated CHANGES TO PREVIOUS DOCUMENTATION: Premature rupture of membranes--clear fluid--cervix is 3 cm 30%-no presenting part-on ultrasound baby is oblique lie with head in the left lower quadrant. Options discussed with patient and she desires . -Risks of including bleeding, infection, anesthesia risk, damage to surrounding organs including but not limited to bladder, bowel, blood vessels reviewed with patient. She desires a tubal ligation. -We discussed that a tubal ligation is a permanent procedure and that should she desire to have a reversal procedure the success rate of a reversal procedure is low. I also discussed the failure rate of tubal ligation is less than 1% and that should she find out she is after having the procedure, she needs to see an DIRECT SUPPORT PROFESSIONAL CAREGIVER immediately as her risk of having an ectopic is higher. She also understands that the regret rate is higher when people to choose permanent sterilization at a younger age. -I discussed with her the difference between partial and total salpingectomy--failure rate, risk of ectopic, reversal success etc. and all her questions were answered. Discussed decreasing risk of ovarian cancer and recommendation for total salpingectomy. She would like to have total salpingectomy done. -Surgical procedure reviewed with patient including risks of bleeding, infection, anesthesia risk, damage to surrounding organs including bladder, bowel, blood vessels, possible laparotomy, blood transfusion etc. -Medicaid consents were signed on 06/16/2021 surgical consents for primary delivery with bilateral total salpingectomy for sterilization signed on 06/16/2021 -Patient to the operating room for surgery
--- NOTE | 2021-09-06 13:02 | ANES.PREANE2 ---
Pre-Anesthetic Assessment Height/Weight: Height 1.6 m Weight 108.862 kg Temp Pulse Resp BP Pulse Ox 97.8 F 90 16 115/72 100 09/06/21 06:16 09/06/21 11:50 09/06/21 06:16 09/06/21 11:50 09/06/21 09:47 Preop Diagnosis: transverse lie Operation Date: 09/06/21 12:30 Proposed Procedures p Section With Tubal(Not Applicable) - Alida Chavarria MD Familial anesthetic complications: none Was Beta Kalin taken within 24 hours: N/A Was Clonidine taken within 24 hours: N/A Social No alcohol and No tobacco Exam alert, oriented x 3, clear to auscultation bilaterally and regular rate & rhythm Airway Submandibular: within normal limits Cervical ROM: within normal limits Mallampati: Class II Dentition: chipped Pulmonary None reported CV/HEM None reported Hepatic None reported GI None reported Metabolic None reported Musc/skel None reported Neuropsych None reported Anesthetic Plan ASA status: 2 Anesthesia: Anesthesia Evaluation and Regional (specify below) (spinal) Other: We discussed risk and benefits of spinal anesthesia including infection, paralysis/catastrophic nerve injury, back bruising/pain, PDPH, conversion to general in case of spinal failure, intraoperative and PONV, life threatening allergic reaction, post operative ICU admission requiring prolonged intubation, stroke, heart attack. Risk of > 500 ml blood loss (7ml/kg in children): No Medications/Allergies Home Medications Medication Instructions Recorded Confirmed Last Taken Type Iron 1 tab PO DAILY 04/14/21 09/06/21 09/05/21 History vit 168-iron 27 mg-folic 1 cap PO DAILY 04/14/21 09/06/21 09/05/21 History acid 800 mcg-omega3 235 mg capsule (One-A-Day -1) famotidine 40 mg tablet (Pepcid) 40 mg PO BID #60 tab 05/24/21 09/06/21 09/05/21 22:00 Rx Allergies Allergy/AdvReac Type Severity Reaction Status Date / Time Penicillins Allergy rash Verified 09/06/21 07:04 Current Medications Generic Name Dose Route Start Last Admin Trade Name Freq PRN Reason Stop Dose Admin Oxytocin 30 unit in 500 mls @ 600 mls/hr 09/06/21 06:16 09/06/21 11:47 Pitocin IV 600 ml/hr .Q50M PRN 600 mls/hr After delivery of Administration Protocol Dextrose/Lactated Ringer's 1,000 mls @ 125 mls/hr 09/06/21 06:30 09/06/21 08:50 Dextrose 5%-Lactated Ringers IV 125 mls/hr .Q8H [place] Administration PFSH Anesthesia Medical History Psychiatric care Surgical History H/O dilation and curettage Family History Grandmother Clotting disorder maternal Grandfather Heart disease maternal great Denies family history of Colon cancer Ovarian cancer Diabetes Hyperlipidemia Breast cancer Anesthesia complication Bleeding disorder Hypertension Uterine cancer Thyroid condition Stroke Female Reproductive History Date of last menstrual period: 12/07/20 : 8 Data Anesthesia : 09/06/21 06:25 Short CBC 09/06/21 Range/Units 06:25 WBC 7.8 (4.0-10.0) 10^3/uL Hgb 9.3 L (11.5-15.3) g/dL Hct 28.8 L (37.0-47.0) % MCV 85.2 (81-99) fl Plt Count 159 (130-400) 10^3/cmm Neut % (Auto) 66.7 % Neut # (Auto) 5.18 (1.8-7.7) 10^3/uL Blood Bank 09/06/21 06:25 Blood Type O Positive Rho(D) Type Positive Cardiac Studies: No Data to Display
--- NOTE | 2021-09-06 13:08 | SUR.OPER ---
surgicel placed over uterine incision Lot# [id number] exp: 12/13/25 [id number]
--- NOTE | 2021-09-06 14:04 | PC.NURSE ---
Patient being transferred to OR via bed by this nurse and Beau Lott RN
--- NOTE | 2021-09-06 14:13 | P.OP_ITS ---
Operative Report Date of procedure: September 06, 2021 Pre-op diagnosis: OPERATIVE REPORT Date of surgery: 09/06/2021 Date of dictation: 09/06/2021 Preoperative diagnosis: Multiparity desiring permanent sterilization, unstable azb-rybofbgahmieanu-yrqoxve, obesity with a BMI of 42 Postoperative diagnosis/findings: Same, baby girl with Apgars of 7 and 9, 20.5 inches long, 3720 g - 8 pounds 3 ounces, normal tubes and ovaries bilaterally Procedure done: Primary low transverse delivery via Pfannenstiel incision with bilateral total salpingectomy for sterilization Specimens removed/disposition of specimens: Placenta and cord which were discarded, right and left fallopian tubes sent to pathology Surgeon: Dr. Alida Mackey Marketing Proposal Coordinator: Chayito Perdomo Anesthesia: Spinal anesthesia Estimated blood loss: 800 mL Intravenous fluids: 2 L of LR Urine output: 400 mL of clear urine at the end of procedure Medications: As per anesthesia records Complications: None, both baby and mother were left to recover in a stable condition. INDICATION FOR SURGERY: Ms. Donis is a 26-year-old 8 para 5-0-2-5 with 5 previous vaginal deliveries. She was 39 weeks and 0 days. She presented to labor and delivery on 09/06/2021 at 6:30 AM with reports of spontaneous rupture of membranes at about 5 AM. On exam she was noted to be grossly ruptured with clear fluid and positive nitrazine. On exam her cervix is 1 cm thick and head was out of the pelvis. Ultrasound done confirms cephalic presentation. She was observed for 1 hour and made no cervical change and it was still high. No cord was identified. tracing was category 1 and she had only occasional contractions. Decision was made to start induction of labor given PROM. Cytotec was placed at 7:15 AM at which point head was palpated vaginally however was still -5 and tracing remained category 1. She was made to sit up in throne position the whole time given -5 station of head. 4 hours after Cytotec was placed pelvic exam was done and no presenting part was palpable and cervix was 3 cm 40%. Ultrasound performed showed that baby was in the transverse position with the head in the left lower quadrant. I was notified of this immediately and presented to evaluate the patient. My exam also showed no presenting part-no cord. Ultrasound showed that the baby was an oblique lie with the head in the left lower quadrant near the hip. Per MAX Giron the head was closer to the left upper quadrant on her ultrasound. -----> I discussed with patient that at this time baby is not cephalic and has an unstable lie given change in position. Discussed at this time I would recommend a given that an external version would be unlikely to be successful because of her body habitus and ruptured status. She understands and agrees. She had desired sterilization. - Patient was counseled about sterilization--permanent not reversible. Option of partial versus total salpingectomy discussed and she desires total salpingectomy. Medicaid consents have been signed on 06/16/2021. -Consent was signed for delivery with bilateral total salpingectomy for sterilization and patient was taken to the operating room. PROCEDURE: After consent was obtained, patient was taken to the operating room where spinal anesthesia was placed without difficulty. She was placed supine on the table with a left lateral wedge. Vaginal prep, Sears catheter and SCDs were placed. The abdomen was shaved and then prepped with ChloraPrep. She was draped in a sterile fashion. After checking adequacy of anesthesia, a Pfannenstiel incision was made 2 cm above the pubic symphysis. The incision was carried down to the fascia using the Bovie. The fascia was nicked in the midline and the fascial incision was extended laterally using curved Mayos. The inferior aspect of the fascia was grasped with zaynab clamps and dissected off from the underlying rectus muscle. This was repeated again superiorly without any difficulty. The rectus muscle was . A john was made in the peritoneum and the peritoneal incision was carried inferiorly taking care to proceed in layers so as to avoid the bladder. The peritoneal incision was extended superiorly as wel l. No adhesions were noted from the uterus to the anterior abdominal wall. The uterus was noted to be rotated to the left. The bladder peritoneum was grasped with smooth forceps a bladder flap was created. the bladder blade was replaced thus protecting the bladder. A LOW TRANSVERSE UTERINE INCISION was made with a scalpel till the amniotic membrane was reached. The uterine incision was then extended laterally using bandage scissors. The breech of the baby was noted to be near the incision. When the breech was grasped it slipped out of my hand and baby became transverse back down. Decision was made to do an internal podalic version rather thanT-ing the uterus given the baby had moved so easily. This was done without any difficulty and breech was grasped again. It was brought to the level of the incision and feet were noted to be near the breech and feet and legs were delivered followed by the breech and the baby was delivered up to the level of the chest. Arms were swept over the chest without any difficulty and the body was wrapped in a blue towel and the head delivered shortly after without any difficulty. The nose and mouth were suctioned, the umbilical cord was clamped and cut and the baby was handed off to the waiting parts assembler, Dr. Valle. The placenta was delivered spontaneously with fundal massage. It was noted to be intact and was discarded. The interior of the uterus was cleaned of all clot and debris and was noted to be horace well. The uterus was exteriorized. The uterine incision was closed with 0 Vicryl in a running interlocking manner. Good hemostasis and reapproximation was obtained. [id number]-[id number] sutures were placed in interrupted fashion as an imbricating layer. The abdomen was irrigated and the gutters were cleaned of clot and debris. Normal tubes and ovaries were noted bilaterally. Tubal ligation was performed at this time. The fallopian tube on the right side and in the left side were first identified grasped with Durand clamps. Using the Voyant device the mesosalpinx under the fallopian tube was identified clamped cauterized and then cut in a sequential fashion until the entire fallopian tube was removed. This was done first on the right side and then the left side without any difficulty. Areas of vasculature were doubly cauterized. The cornual end was cauterized as well. Good hemostasis and reapproximation of tissue was noted. The uterus was placed back into the abdomen and uterine incision was noted to be hemostatic. The peritoneum was closed with a 2-0 plain in a continuous stitch. The rectus muscle was reapproximated with 2-0 plain suture in a mattress stitch. Good hemostasis was noted in the rectus muscle layer. The fascia was inspected f or any defects and none were found and the fascia was closed with 0 Vicryl in continuous stitch. The subcutaneous plane was then irrigated and hemostasis was obtained using the Bovie. The subcutaneous plane was then reapproximated using 2-0 plain suture in a continuous manner. The skin was then closed with 4-0 Monocryl in a subcuticular fashion. Good reapproximation and hemostasis was noted. Steri-Strips were applied. The incision was dressed with Telfa ,ABD and paper tape. The fundus was noted to be firm at the end of the procedure and excess blood was expressed from the vagina. The patient was left to recover in a stable condition. Lap instrument and needle counts were correct x3. This documentation was created by [employer] documentation nurse software (known for inherent documentation nurse error). Every effort was made to assure accuracy of documentation nurse. Any obvious errors or omissions should be clarified with the author of the document.
[2021-09-06] MEDS: ibuprofen 800 mg tablet PO (15:29)
[2021-09-06] MEDS: ondansetron 2 mg/ML SDV 2 mL 4 MG IVP (15:29)
--- NOTE | 2021-09-06 22:00 | PC.NURSE ---
RN rounded inquired about pt pain. Patient states that she did not take the ibuprofen that the day shift nurse had provided her. This RN instructed patient on importance of scheduled ibuprofen and staying ahead of pain. Advised patient we would discard and waste ibuprofen tablet given to patient by dayshift and I would provide a new ibuprofen tablet at this time. When RN returned to room with ibuprofen patient states I just took the one from earlier. This RN returned unopened ibuprofen tablet to [facility] and educated patient on taking medications at time they are given.
[2021-09-07] MEDS: HYDROcodone-acetaminophen 5-325 mg Tablet PO ×4 (02:36→20:32)
[2021-09-07 02:46] LABS: Hemoglobin 9.3 g/dL (11.5-15.3); Mean Corpuscular Hemoglobin 26.9 pg (28.0-34.0); Mean Corpuscular Volume 86.7 fl (81-99); Mean Platelet Volume 11.6 fL (7.4-10.4); Platelet Count 183 10^3/cmm (130-400); Red Blood Count 3.46 10^6/uL (4.1-5.3); Red Cell Distribution Width 15.1 % (12.1-15.1); White Blood Count 12.2 10^3/uL (4.0-10.0)
[2021-09-07 03:19] VITALS: BP 98/59; PULSE 81; TEMP 36.6; O2SAT 98
--- NOTE | 2021-09-07 06:21 | ANE.PACU2 ---
Inpatient post-anesthesia follow up: Airway intact: Yes Vital signs: Temperature 97.9 F Pulse Rate 81 Respiratory Rate 16 Blood Pressure 98/59 Pulse Oximetry 98 Oxygen Delivery Me thod Room Air Oxygen Flow Rate Fraction of Inspir ed Oxygen Hydration adequate: Yes Nausea and vomiting: No Pain level: 2 Mental status: Baseline
--- NOTE | 2021-09-07 06:35 | P.PN_ITS ---
Subjective Subjective: SUBJECTIVE: Ms. Donis is doing okay. She states overall her pain is well controlled. Does have some burning and tugging when she moves but otherwise is doing well. She denies heavy bleeding and is breast-feeding and bonding well with her daughter. She denies headaches, blurry vision, chest pain shortness of breath nausea or vomiting. She overall feels a little bit better than yesterday. OBJECTIVE/PHYSICAL EXAM: Gen.: No acute distress Heart: S1-S2 heard, regular rate and rhythm Lungs: Clear to auscultation bilaterally Abdomen: Soft, fundus firm below umbilicus, tenderness around incision. Incision: Dressing appears clean dry and intact. Legs: No calf tenderness, trace bilateral pitting pedal edema. ASSESSMENT AND PLAN: 26-year-old 8 para 6-0-2-6 status post primary low transverse delivery and tubal ligation for malpresentation, postoperative day #1 -Doing well-continue routine postoperative care -Sears catheter has been discontinued but she has not voided-we will follow-up on this -Tolerating clears-we will advance to full liquid diet and hold until she passes gas. When she passes gas will advance to regular diet -Cut down IV fluids to 100 mL an hour and discontinue once tolerating regular diet -Hemoglobin stable-vital signs stable -Anticipate discharge home in the next 1 to 2 days depending on how she is feeling. -P.o. pain medication as needed Vitals/I&O/Wt Last Vital Signs Temp 97.9 F 09/07/21 08:36 Pulse 62 09/07/21 08:36 Resp 16 09/07/21 12:01 BP 111/74 09/07/21 12:01 Pulse Ox 98 09/07/21 03:19 09/07/21 09/07/21 09/07/21 06:59 14:59 22:59 Output Total 1050 / 3250 900 / 900 Balance -1050 / -1096 -900 / -900 Weight last 48 hrs Weight 240 lb Weight 240 lb Physical Exam Urinary Catheter Management: Sears Latex: Cath Placed During This Visit: yes, but has since been removed by the nurse Reason for Continuing Indwelling Catheter: Decision to DC Catheter Urinary Catheter Date of Insertion: 09/06/21 Urinary Catheter Time of Insertion: 12:15 Date Urinary Catheter Removed: 09/07/21 Time Urinary Catheter Discontinued: 06:20 Data : 09/07/21 02:28 Attestations Medical Necessity Statement*: Patient needs to stay for 1-2 more midnights to recover from surgery Coding Level of Care Code Acute Manager Collection for Markel Palacios
[2021-09-07 08:36] VITALS: BP 97/59; PULSE 62; RESP 18; TEMP 36.6
--- NOTE | 2021-09-07 09:35 | PC.NURSE ---
Patient ambulated 5 laps around the unit at this time.
[2021-09-07] MEDS: docusate sodium 100 mg Capsule PO ×2 (09:40→17:21)
[2021-09-07] MEDS: prenatal vitamin Capsule 1 CAP PO (09:40)
[2021-09-07] MEDS: ibuprofen 800 mg tablet PO ×3 (09:41→20:33)
--- NOTE | 2021-09-07 10:57 | ANES.PROC ---
Anesthesia Procedures Procedure/Date: 09/06/21 SPINAL Procedure Narrative: Patient in sitting position. Full monitors, simpe mask 10 LPM. Time out. Cap, mask donned by all staff present. Sterile prep w/ Chlorprep. Drape. 1% lidocaine skin wheel. Introducer. 25 g Pencan, + birefringence, no heme. 1.6 ml 0.75% bupivacaine w/ dextrose with 0.15 mg PF morphine and 20 mcg PF fentanyl. 3 attempts. Good block. Other Information: Late entry for regional block performed for C section 09/06/21
[2021-09-07 12:01] VITALS: BP 111/74; RESP 16
[2021-09-07] MEDS: ferrous sulfate EC 325 mg Tablet PO ×2 (15:11→17:21)
[2021-09-07 19:29] VITALS: BP 130/83; RESP 16; TEMP 36.7
[2021-09-07 22:04] VITALS: BP 95/59; PULSE 77; RESP 16; O2SAT 98
[2021-09-08] MEDS: HYDROcodone-acetaminophen 5-325 mg Tablet PO ×3 (04:33→15:57)
[2021-09-08 04:48] VITALS: BP 115/77; PULSE 91; RESP 17
--- NOTE | 2021-09-08 07:05 | PM.PN ---
Subjective Subjective: SUBJECTIVE: Ms. Donis is doing okay today. She feels a little bit more uncomfortable than she did yesterday. Is wanting to eat regular food but understands she has to wait until she passes gas. Has not really walked a whole lot yesterday and has had SCDs on for DVT prophylaxis. She does plan on moving more today. She is glad she does not have the catheter. She denies any other problems and denies shortness of breath, chest pain, nausea, vomiting OBJECTIVE/PHYSICAL EXAM: Gen.: No acute distress Heart: S1-S2 heard, regular rate and rhythm Lungs: Clear to auscultation bilaterally Abdomen: Soft, fundus firm below umbilicus, tenderness around incision. Incision: Clean dry and intact with Steri-Strips. Legs: No calf tenderness, +1 bilateral pitting pedal edema. ASSESSMENT AND PLAN: 26-year-old 8 para 6-0-2-6 status post primary low transverse delivery and tubal ligation for malpresentation, postoperative day #2 -Doing well-continue routine postoperative care -Tolerating full liquid diet without any difficulty-encourage ambulation and when she passes gas will advance to regular diet. -IVF been Hep-Lock normal anticipate discontinuing this now. -Hemoglobin stable-vital signs stable -Anticipate discharge home in the next 1 to 2 days depending on how she is feeling. -P.o. pain medication as needed -Encourage ambulation, early ambulation and SCDs for DVT prophylaxis. Patient understand the importance of ambulation. Vitals/I&O/Wt Last Vital Signs Temp 97.8 F 09/08/21 10:50 Pulse 91 09/08/21 10:50 Resp 18 09/08/21 10:50 BP 122/83 09/08/21 10:50 Pulse Ox 96 09/08/21 10:50 Physical Exam Urinary Catheter Management: Sears Latex: Cath Placed During This Visit: yes, but has since been removed by the nurse Reason for Continuing Indwelling Catheter: Decision to DC Catheter Urinary Catheter Date of Insertion: 09/06/21 Urinary Catheter Time of Insertion: 12:15 Date Urinary Catheter Removed: 09/07/21 Time Urinary Catheter Discontinued: 06:20 Data : 09/07/21 02:28 Attestations Medical Necessity Statement*: Patient will need to stay for 1-2 more midnights to recover from delivery Coding Level of Care Code Acute Cooperative Extension Agent for Markel Palacios
[2021-09-08] MEDS: docusate sodium 100 mg Capsule PO ×2 (08:07→18:22)
[2021-09-08] MEDS: prenatal vitamin Capsule 1 CAP PO (08:07)
[2021-09-08] MEDS: ibuprofen 800 mg tablet PO ×3 (08:07→20:36)
[2021-09-08] MEDS: ferrous sulfate EC 325 mg Tablet PO ×2 (08:07→18:22)
[2021-09-08 10:50] VITALS: BP 122/83; PULSE 91; RESP 18; TEMP 36.6; O2SAT 96
[2021-09-08 21:40] VITALS: BP 105/64; PULSE 88; RESP 16; TEMP 36.7; O2SAT 97
[2021-09-09] MEDS: HYDROcodone-acetaminophen 5-325 mg Tablet PO (02:04)
[2021-09-09 04:40] VITALS: BP 124/76; PULSE 79; RESP 16; TEMP 36.7; O2SAT 96
--- NOTE | 2021-09-09 04:56 | P.DS_ITS ---
Discharge Providers CHIEF DISPATCHER SERVICE Date of Admission: 09/06/21 06:16 Date of Discharge: 09/09/21 Attending Provider at Admission: Alida Chavarria MD Attending Provider at Discharge: Alida Chavarria MD Date of surgery: 09/06/2021 Preoperative diagnosis: Multiparity desiring permanent sterilization, unstable qnu-nnpmftwulzigvjx-vulebus, obesity with a BMI of 42 Postoperative diagnosis/findings: Same, baby girl with Apgars of 7 and 9, 20.5 inches long, 3720 g - 8 pounds 3 ounces, normal tubes and ovaries bilaterally Procedure done: Primary low transverse delivery via Pfannenstiel incision with bilateral total salpingectomy for sterilization INDICATION FOR SURGERY: Ms. Donis is a 26-year-old 8 para 5-0-2-5 with 5 previous vaginal deliveries.? She was 39 weeks and 0 days.? She presented to labor and delivery on 09/06/2021 at 6:30 AM with reports of spontaneous rupture of membranes at about 5 AM.? On exam she was noted to be grossly ruptured with clear fluid and positive nitrazine.? On exam her cervix is 1 cm thick and head was out of the pelvis.? Ultrasound done confirms cephalic presentation.? She was observed for 1 hour and made no cervical change and it was still high.? No cord was identified.? tracing was category 1 and she had only occasional contractions.? Decision was made to start induction of labor given PROM.? Cytotec was placed at 7:15 AM at which point head was palpated vaginally however was still -5 and tracing remained category 1.? She was made to sit up in throne position the whole time given -5 station of head.? 4 hours after Cytotec was placed pelvic exam was done and no presenting part was palpable and cervix was 3 cm 40%.? Ultrasound performed showed that baby was in the transverse position with the head in the left lower quadrant.? I was notified of this immediately and presented to evaluate the patient.??My exam also showed no presenting part-no cord.? Ultrasound showed that the baby was an oblique lie with the head in the left lower quadrant near the hip.? Per MAX Giron the head was closer to the left upper quadrant on her ultrasound. -----> I discussed with patient that at this time baby is not cephalic and has an unstable lie given change in position.? Discussed at this time I would recommend a given that an external version would be unlikely to be successful because of her body habitus and ruptured status.? She understands and agrees.? She had desired sterilization. - Patient was counseled about sterilization--permanent not reversible.? Option of partial versus total salpingectomy discussed and she desires total salpingectomy.? Medicaid consents have been signed on 06/16/2021. -Consent was signed for delivery with bilateral total salpingectomy for sterilization and patient was taken to the operating room. HOSPITAL COURSE: She underwent an uncomplicated primary delivery with tubal ligation on 09/06/2021. She did well on day 0 and was ambulating well, tolerating clear liquid diet.. She was breast-feeding without difficulty and bonding well with her daughter. Pain was well-controlled with by mouth pain medication. She denied nausea, vomiting, fever, chills, shortness of breath, leg pain. She had moderate vaginal bleeding. On day # 1 she continued to do well with stable vital signs and stable hemoglobin at 9.3. Sears catheter was removed and she voided without any difficulty. She continued to do well on postoperative day #2 and 3. She passed flatus on day 2 and tolerated regular diet without nausea or vomiting. SCDs were continued while patient was in bed for DVT prophylaxis and early ambulation was encouraged. She was discharged home on day 3 in a stable condition, as she desired early discharge. Warning signs for endometritis, mastitis, DVT/PE, wound infection were reviewed with her. Post delivery activity restrictions were also reviewed with her at all her questions were answered to her satisfaction. Has had a tubal ligation for sterilization EXAM AT DISCHARGE: Gen.: No acute distress Heart: S1-S2 heard, regular rate and rhythm Lungs: Clear to auscultation bilaterally Abdomen: Soft, fundus firm below umbilicus, tenderness around incision. Incision: Clean dry and intact with Steri-Strips. Legs: No calf tenderness, + bilateral pitting pedal edema. CONDITION AT DISCHARGE: Stable This documentation was created by [employer] user experience team lead software (known for inherent user experience team lead error). Every effort was made to assure accuracy of gudino scription. Any obvious errors or omissions should be clarified with the author of the document. Reason for Visit Reason for Visit: SROM Information Peripartum Data: Delivery Method: Physical Exam Urinary Catheter Management: Sears Latex: Cath Placed During This Visit: yes, but has since been removed by the nurse Reason for Continuing Indwelling Catheter: Decision to DC Catheter Urinary Catheter Date of Insertion: 09/06/21 Urinary Catheter Time of Insertion: 12:15 Date Urinary Catheter Removed: 09/07/21 Time Urinary Catheter Discontinued: 06:20 History History History 8 Term 5 Miscarriages/Ectopic 2 0 Living Children 5 Discharge Data Studies Completed and Pending Pending at discharge Category Date Time Status PRBC [Leukocyte Reduced RBC] Stat Lab 09/06/21 06:25 Results Type and Screen Stat Lab 09/06/21 06:25 Results Pathology: Surgical [PTH] Routine Pth 09/06/21 13:23 Received Laboratory Results WBC 12.2 10^3/uL (4.0-10.0) H 09/07/21 02:28 RBC 3.46 10^6/uL (4.1-5.3) L 09/07/21 02:28 Hgb 9.3 g/dL (11.5-15.3) L 09/07/21 02:28 Hct 30.0 % (37.0-47.0) L 09/07/21 02:28 MCV 86.7 fl (81-99) 09/07/21 02:28 MCH 26.9 pg (28.0-34.0) L 09/07/21 02:28 MCHC 31.0 g/dL (30.0-36.0) 09/07/21 02:28 RDW 15.1 % (12.1-15.1) 09/07/21 02:28 Plt Count 183 10^3/cmm (130-400) 09/07/21 02:28 MPV 11.6 fL (7.4-10.4) H 09/07/21 02:28 Neut % (Auto) 66.7 % 09/06/21 06:25 Lymph % (Auto) 23.5 % 09/06/21 06:25 [place] % (Auto) 6.8 % 09/06/21 06:25 Eos % (Auto) 1.8 % 09/06/21 06:25 Baso % (Auto) 0.4 % 09/06/21 06:25 Neut # (Auto) 5.18 10^3/uL (1.8-7.7) 09/06/21 06:25 Lymph # (Auto) 1.8 10^3/uL (0.8-4.8) 09/06/21 06:25 [place] # (Auto) 0.5 10^3/uL (0.2-0.9) 09/06/21 06:25 Eos # (Auto) 0.1 10^3/uL (0.0-0.8) 09/06/21 06:25 Baso # (Auto) 0.0 10^3/uL (0.0-0.1) 09/06/21 06:25 Nucleated RBC % (auto) 0 % 09/06/21 06:25 Nucleated RBCs # 0.0 /100WBC 09/06/21 06:25 Blood Type O Positive 09/06/21 06:25 Rho(D) Type Positive 09/06/21 06:25 Antibody Screen Negative 09/06/21 06:25 Crossmatch See Detail 09/06/21 06:25 Vitals Last Vital Signs Temp 97.8 F 09/08/21 10:50 Pulse 91 09/08/21 10:50 Resp 18 09/08/21 10:50 BP 122/83 09/08/21 10:50 Pulse Ox 96 09/08/21 10:50 Discharge Plan Discharge Patient Disposition: Home Condition: Stable Prescriptions: New hydrocodone-acetaminophen 5-325 mg tablet 1 tab PO Q6H Qty: 25 0RF Rx Instructions: Alternate with ibuprofen ibuprofen 800 mg tablet 800 mg PO Q8H Qty: 30 0RF docusate sodium 100 mg Capsule 100 mg PO BID PRN (Reason: constipation) Qty: 30 0RF Continued One-A-Day -1 27 mg iron- 800 mcg-235 mg capsule 1 cap PO DAILY 0RF Iron 1 tab PO DAILY 0RF famotidine [Pepcid] 40 mg tablet 40 mg PO BID Qty: 60 6RF Discharge Orders: Discharge Order (Routine); Ordered 09/09/21 Ordered By: Alida Chavarria Referrals: Markell Lai MD [Physician] - 10/19/21 3:15 pm Alida Chavarria MD [Physician] - 09/22/21 10:15 am Discharge Diet: Regular Discharge Activity: Limit activity as instructed Patient Instructions: Depression (DC), Bleeding (DC), Preeclampsia and Eclampsia After Delivery (GEN), Tubal Ligation (DC), OB C- Section WHC, OB Discharge Report, OB Food/Drug Interaction Guide, OB Care at Home, Opioid Safety Activity Restrictions/Additional Instructions: No heavy lifting for 6 weeks, pelvic rest for 6 weeks Follow-up with Dr. Mackey at 2 weeks for incision check and Dr. Lai for 6- week visit. Emergency room precautions reviewed Discharge Attestations CHIEF DISPATCHER SERVICE Time Spent in Discharge Care*: greater than 30 min Coding Level of Care Code Acute Buyer Grain for Markel Palacios
[2021-09-09] MEDS: prenatal vitamin Capsule 1 CAP PO (09:02)
[2021-09-09] MEDS: ibuprofen 800 mg tablet PO (09:02)
[2021-09-09] MEDS: ferrous sulfate EC 325 mg Tablet PO (09:02)
[2021-09-09] MEDS: docusate sodium 100 mg Capsule PO (09:02)
[2021-09-09 10:00] VITALS: BP 114/75; PULSE 89; RESP 16; TEMP 36.8
[2021-09-09 10:49] VITALS: BP 114/75; PULSE 89; RESP 16; TEMP 36.8
== END 2021-09-09 10:33 | disposition home or self-care (01) | DRG 785 ==
LOC: OPOB 07:17 → OBGYN 07:17
PROVIDERS: Admitting Provider Obstetrics & Gynecology; Visit Provider Obstetrics & Gynecology
PROC: 10D00Z1 Extraction of Products of Conception, Low, Open Approach (ICD-10-PCS; CPT 59514; principal; 2021-09-06 12:30)
DX: O99.814 Abnormal glucose complicating childbirth (principal); O99.214 Obesity complicating childbirth; O36.63X0 Maternal care for excessive fetal growth, third trimester, not applicable or unspecified; O32.2XX0 Maternal care for transverse and oblique lie, not applicable or unspecified; O42.02 Full-term premature rupture of membranes, onset of labor within 24 hours of rupture; Z3A.39 39 weeks gestation of pregnancy; Z37.0 Single live birth; Z30.2 Encounter for sterilization
CPT/HCPCS: 36415; 51702; 83986; 85025; 85027; 86850; 86900; 86920; 88302; J1580; J2274; J2370; J2405; J2765; J3010; J3490; J7030

== ENCOUNTER 2021-09-09 20:13 | Emergency (ER) | payer OTHER, SELFPAY ==
[2021-09-09 20:16] VITALS: BP 162/104; PULSE 77; RESP 22; TEMP 37.6; O2SAT 100
--- NOTE | 2021-09-09 20:22 | XRR_ITS ---
PROCEDURE INFORMATION: Exam: XR Chest Exam date and time: 09/09/2021 9:09 PM Age: 26 years old Clinical indication: Fever; Additional info: Fever, 3 days TECHNIQUE: Imaging protocol: XR of the chest. Views: 1 view. COMPARISON: CT angio chest w abd pel w con 09/09/2021 8:59 PM FINDINGS: Lungs: Unremarkable. No consolidation. Pleural spaces: Unremarkable. No pleural effusion. No pneumothorax. Heart/Mediastinum: Unremarkable. No cardiomegaly. Bones/joints: Unremarkable. XR/XR chest 1V portable [id number] IMPRESSION: No acute findings.
--- NOTE | 2021-09-09 20:27 | CTR_ITS ---
PROCEDURE INFORMATION: Exam: CTA Chest With Contrast Exam date and time: 09/09/2021 8:59 PM Age: 26 years old Clinical indication: Abdominal pain; Other: Bilateral flank and back pain; Other: Back pain no breathing issues; Prior surgery; Surgery date: 3-7 days post-operative; Surgery type: C section three days ago; Patient HX: Upper back pain, started this afternoon. Pain started about the bra line and goes straight up spine. PT had on Tuesday. ; Additional info: Cp TECHNIQUE: Imaging protocol: Computed tomographic angiography of the chest with contrast. 3D rendering (Not supervised by radiologist): MIP and/or 3D reconstructed images were created by the technologist. Radiation optimization: All CT scans at this facility use at least one of these dose optimization techniques: automated exposure control; mA and/or kV adjustment per patient size (includes targeted exams where dose is matched to clinical indication); or iterative reconstruction. Contrast material: OMNI 350; Contrast volume: 158 ml; Contrast route: INTRAVENOUS (IV); COMPARISON: 1. CR XR chest 1V portable [id number] 05/14/2021 12:36 AM 2. US OB limited [id number] 08/11/2021 10:15 AM RADIATION DOSE METRICS: Total DLP (mGy-cm): 2285.71 FINDINGS: Pulmonary arteries: Pulmonary arteries well opacified to the subsegmental level. No evidence of pulmonary embolism. Aorta: Unremarkable. No aortic aneurysm. No aortic dissection. Lungs: Mild dependent atelectasis. No focal consolidation. Airways normal in caliber and patent. Pleural spaces: Unremarkable. No pneumothorax. No pleural effusion. Heart: Unremarkable. No cardiomegaly. No pericardial effusion. Lymph nodes: Unremarkable. No enlarged lymph nodes. Bones/joints: No acute or aggressive osseous lesion. Soft tissues: Unremarkable. PROCEDURE INFORMATION: Exam: CT Abdomen And Pelvis With Contrast Exam date and time: 09/09/2021 8:59 PM Age: 26 years old Clinical indication: Abdominal pain; Other: Bilateral flank and back pain; Other: Back pain no breathing issues; Prior surgery; Surgery date: 3-7 days post-operative; Surgery type: C section three days ago; Patient HX: Upper back pain, started this afternoon. Pain started about the bra line and goes straight up spine. PT had on Tuesday. ; Additional info: Cp TECHNIQUE: Imaging protocol: Computed tomography of the abdomen and pelvis with contrast. Radiation optimization: All CT scans at this facility use at least one of these dose optimization techniques: automated exposure control; mA and/or kV adjustment per patient size (includes targeted exams where dose is matched to clinical indication); or iterative reconstruction. Contrast material: OMNI 350; Contrast volume: 158 ml; Contrast route: INTRAVENOUS (IV); COMPARISON: 1. CR XR chest 1V portable [id number] 05/14/2021 12:36 AM 2. US OB limited [id number] 08/11/2021 10:15 AM RADIATION DOSE METRICS: Total DLP (mGy-cm): 2285.71 FINDINGS: Liver: Normal. No mass. Gallbladder and bile ducts: Gallbladder normal in size, with multiple gallstones throughout. No CT evidence of acute cholecystitis. Normal caliber extrahepatic duct. Pancreas: Normal. No ductal dilation. Spleen: Spleen is enlarged measuring 16.5 cm in AP diameter. No lesions. Adrenal glands: Normal. No mass. Kidneys and ureters: No hydronephrosis. No mass. Stomach and bowel: No obstruction. No inflammatory changes. Appendix: No evidence of appendicitis. Intraperitoneal space: No free air. No significant fluid collection. Arteries: Unremarkable. No abdominal aortic aneurysm. Lymph nodes: Unremarkable. No enlarged lymph nodes. Urinary bladder: Unremarkable as visualized. Reproductive: Heterogeneous enlarged uterus. Stranding and a small amount of air along the anterior abdominal wall following recent section. No focal fluid collection. 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 Soft tissues: Unremarkable. CT/CT angio chest w abd pel w con IMPRESSION: No evidence of pulmonary embolism or other acute abnormality. IMPRESSION: 1. Cholelithiasis without evidence of acute cholecystitis. 2. Heterogeneous enlarged uterus with evidence of recent section. 3. Mild splenomegaly without focal mass.
[2021-09-09 20:35] LABS: Basophils % 0.2 %; Eosinophils # 0.3 10^3/uL (0.0-0.8); Eosinophils % 3.3 %; Hematocrit 28.6 % (37.0-47.0); Hemoglobin 9.1 g/dL (11.5-15.3); Lymphocytes # 1.3 10^3/uL (0.8-4.8); Lymphocytes % 15.4 %; Mean Corpuscular HGB Conc 31.8 g/dL (30.0-36.0); Mean Corpuscular Hemoglobin 27.4 pg (28.0-34.0); Mean Corpuscular Volume 86.1 fl (81-99); Mean Platelet Volume 10.8 fL (7.4-10.4); Monocytes # 0.4 10^3/uL (0.2-0.9); Monocytes % 4.6 %; Neutrophils # 6.52 10^3/uL (1.8-7.7); Nucleated Red Blood Cells % 0 %; Platelet Count 208 10^3/cmm (130-400); Red Blood Count 3.32 10^6/uL (4.1-5.3); Red Cell Distribution Width 15.1 % (12.1-15.1); White Blood Count 8.6 10^3/uL (4.0-10.0)
--- NOTE | 2021-09-09 20:37 | ED_ITS ---
HPI - Back Pain/Injury General: Chief Complaint: Back Pain/Injury Stated Complaint: Back Pain Time Seen by Provider: 09/09/21 20:21 Source: patient Mode of arrival: ambulatory Limitations: no limitations History of Present Illness: 18-year-old female who had a on Tuesday states that this evening she had low-grade fevers along with bilateral flank and upper back pain states pain is very sharp in nature rates an 8 out of 10. Denies any dyspnea no vomiting no diarrhea denies any worsening improving factors at this time denies any recent injuries. Associated symptoms: Reports fever(s); Deny abdominal pain, nausea or vomiting Review of Systems Const: Reports: fever(s) Eyes: Denies: blurry vision or eye discomfort ENMT: Denies: throat pain or dental pain Card: Denies: chest pain Resp: Denies: dyspnea GI: Denies: abdominal pain, nausea, vomiting or diarrhea : Reports: flank pain Musc: Reports: back pain Skin/Breast: Denies: rash Neuro: Denies: headache(s) Psych: Denies: depression [place]/Lymph: Denies: easy bruising All/Imm: Denies: urticaria PFSH ED PFSH: Medical History Psychiatric care Surgical History H/O dilation and curettage Status post delivery 09/06/2021---primary low transverse delivery via Pfannenstiel with bilateral total salpingectomy for sterilization. [place] [facility] [place] Status post tubal ligation 09/06/2021---bilateral total salpingectomy at time of . [place] [facility] [place] showed-----> Family History Grandmother Clotting disorder maternal Grandfather Heart disease maternal great Denies family history of Colon cancer Ovarian cancer Diabetes Hyperlipidemia Breast cancer Anesthesia complication Bleeding disorder Hypertension Uterine cancer Thyroid condition Stroke Female Reproductive History: Date of last menstrual period: 12/07/20 Physical Exam Const: COMMON NORMALS: no acute distress, patient oriented x3 and healthy appearing HENMT: COMMON NORMALS: normocephalic and atraumatic HEAD & SCALP: normocephalic and atraumatic Eye: COMMON NORMALS: Equal, round and reactive pupils present and EOMs intact bilaterally PUPIL: Yes Equal, round and reactive pupils present Neck/C-Spine: COMMON NORMALS: full ROM and supple Chest: COMMONS NORMALS: normal inspection of the chest and normal palpation of entire chest wall Resp: COMMON NORMALS: normal respiratory effort, No retractions, No use of accessory muscles and clear to auscultation bilaterally AUSCULTATION: clear to auscultation bilaterally Cardio: COMMON NORMALS: regular rate, regular rhythm and No murmurs present (Cardio) RATE: regular rate RHYTHM: regular rhythm GI: COMMON NORMALS: Normal to inspection, nondistended, normoactive bowel sounds present, Soft to palpation, non-tender and no masses PALPATION: Yes Soft to palpation : OTHER: Bilateral CVA tenderness with some upper back tenderness no midline tenderness Extremity: COMMON NORMALS: normal to inspection and full ROM Neuro: COMMON NORMALS: patient oriented x3, moves all extremities and no focal motor deficits Psych: COMMON NORMALS: mental status grossly normal, Normal thought process present and cooperative THOUGHT PROCESS: Normal thought process present Skin: COMMON NORMALS: no rashes or lesions noted and no wounds GENERAL SKIN EXAM: no rashes or lesions noted Course Vital Signs: Vital signs: Vital Signs Temperature 99.7 F H 09/09/21 20:16 Pulse Rate 77 09/09/21 20:16 Respiratory Rate 16 09/09/21 20:53 Blood Pressure 162/104 09/09/21 20:16 Pulse Oximetry 100 09/09/21 20:16 MDM - Back Pain/Injury Medical Decision Making Patient presents with back pain likely muscular in nature scans here are normal no signs of pulmonary embolism no kidney infection blood work is normal as well she is stable for discharge to follow-up with her PCP return if worsening will prescribe her Naprosyn and hydrocodone Labs : 09/09/21 20:32 09/09/21 20:32 Radiology Impressions Chest X-Ray 09/09/21 20:22 IMPRESSION: No acute findings. Chest/Abdomen/Pelvis CT 09/09/21 20:27 IMPRESSION: No evidence of pulmonary embolism or other acute abnormality. IMPRESSION: 1. Cholelithiasis without evidence of acute cholecystitis. 2. Heterogeneous enlarged uterus with evidence of recent section. 3. Mild splenomegaly without focal mass. Laboratory Results WBC 8.6 10^3/uL (4.0-10.0) 09/09/21 20: RBC 3.32 10^6/uL (4.1-5.3) L 09/09/21 20: Hgb 9.1 g/dL (11.5-15.3) L 09/09/21 20: Hct 28.6 % (37.0-47.0) L 09/09/21 20: MCV 86.1 fl (81-99) 09/09/21: MCH 27.4 pg (28.0-34.0) L 09/09/21: MCHC 31.8 g/dL (30.0-36.0) 09/09/21: RDW 15.1 % (12.1-15.1) 09/09/21: Plt Count 208 10^3/cmm (130-400) 09/09/21 20: MPV 10.8 fL (7.4-10.4) H 09/09/21: Neut % (Auto) 76.0 % 09/09/21: Lymph % (Auto) 15.4 % 09/09/21 20: [place] % (Auto) 4.6 % 09/09/21: Eos % (Auto) 3.3 % 09/09/21: Baso % (Auto) 0.2 % 09/09/21: Neut # (Auto) 6.52 10^3/uL (1.8-7.7) 09/09/21 20: Lymph # (Auto) 1.3 10^3/uL (0.8-4.8) 09/09/21 20: [place] # (Auto) 0.4 10^3/uL (0.2-0.9) 09/09/21 20: Eos # (Auto) 0.3 10^3/uL (0.0-0.8) 09/09/21: Baso # (Auto) 0.0 10^3/uL (0.0-0.1) 04/27/22 20:32 Nucleated RBC % (auto) 0 % 09/09/21 20: Nucleated RBCs # 0.0 /100WBC 09/09/21 20:32 Sodium 139 mmol/L (136-145) 09/09/21 20:32 Potassium 3.6 mmol/L (3.5-5.1) 09/09/21 20:32 Chloride 104 mmol/L (98-107) 09/09/21 20:32 Carbon Dioxide 22 mmol/L (22-29) 09/09/21 20:32 Anion Gap 16.6 (5-19) 09/09/21 20:32 BUN 7 mg/dL (6-20) 09/09/21 20:32 Creatinine 0.5 mg/dL (0.5-0.9) 09/09/21 20:32 GFR Calculation 146.9 mL/min (90-130) H 09/09/21 20:32 Glucose 107 mg/dL (65-115) 09/09/21 20:32 Calculated Osmolality 286 mOsm/kg (285-295) 09/09/21 20:32 Calcium 7.9 mg/dL (8.5-10.5) L 09/09/21 20:32 Total Bilirubin 0.3 mg/dL (0.15-1.2) 09/09/21 20:32 AST 13 U/L (0-32) 09/09/21 20:32 ALT 9 U/L (0-33) 09/09/21 20:32 Alkaline Phosphatase 119 IU/L (35-105) H 09/09/21 20:32 Total Protein 5.8 g/dL (6.6-8.7) L 09/09/21 20:32 Albumin 3.1 g/dL (3.5-5.2) L 09/09/21 20:32 Globulin 2.7 g/dL (1.3-4.6) 09/09/21 20:32 Urine Color Yellow (Yellow) 09/09/21:22 Urine Appearance Clear (CLEAR) 09/09/21 22:22 Urine pH 8 (5-7) H 09/09/21 22:22 Ur Specific [place] 1.005 (1.005-1.030) 09/09/21 22:22 Urine Protein Neg (Negative) 04/27/22 22:22 Urine Glucose (UA) Norm (Normal) 09/09/21 22:22 Urine Ketones Negative (Negative) 09/09/21 22:22 Urine Blood 3+ (Negative) H 09/09/21 22:22 Urine Nitrate Negative (Negative) 09/09/21 22:22 Urine Bilirubin Neg (Negative) 09/09/21 22:22 Prot Sulfosalicylic Acd Negative (Negative) 09/09/21 22:22 Urine Urobilinogen 1 mg/dL (Negative) H 09/09/21 22:22 Ur Leukocyte Esterase Negative (Negative) 09/09/21 22:22 Urine RBC 15-25 /hpf (0-2) H 09/09/21 22:22 Urine WBC 0-4 /hpf (0-5) H 09/09/21 22:22 Ur Squamous Epith Cells 0-4 /hpf (0-5) H 09/09/21 22:22 Amorphous Sediment Not Reportable 09/09/21 22:22 Urine Bacteria None /hpf (NONE) 09/09/21 22:22 Discharge Plan Discharge Patient Disposition: Home Clinical Impression: Back pain Qualifiers: Back pain location: back pain in unspecified location Chronicity: acute Back pain laterality: bilateral Qualified Code(s): M54.9 - Dorsalgia, unspecified Condition: Stable Prescriptions: New hydrocodone-acetaminophen 5-325 mg tablet 1 tab PO Q6H PRN (Reason: pain) Qty: 14 0RF Naprosyn 500 mg tablet 500 mg PO BID PRN (Reason: pain) Qty: 20 0RF No Action One-A-Day -1 27 mg iron- 800 mcg-235 mg capsule 1 cap PO DAILY 0RF Iron 1 tab PO DAILY 0RF famotidine [Pepcid] 40 mg tablet 40 mg PO BID Qty: 60 6RF ibuprofen 800 mg tablet 800 mg PO Q8H Qty: 30 0RF hydrocodone-acetaminophen 5-325 mg tablet 1 tab PO Q6H Qty: 25 0RF Rx Instructions: Alternate with ibuprofen docusate sodium 100 mg Capsule 100 mg PO BID PRN (Reason: constipation) Qty: 30 0RF Discharge Orders: Discharge ED (Routine); Ordered 09/09/21 Ordered By: Pricilla Astorga Discharge Diet: Advance as tolerated Discharge Activity: Resume usual activity Patient Instructions: Back Pain (ED), Opioid Safety Coding Level of Care Code ED Rubber Goods Supervisor for Chg Fwd Exam Comprehensive
[2021-09-09 20:53] VITALS: RESP 16
[2021-09-09] MEDS: acetaminophen 325 mg Tablet 650 MG PO (20:53)
[2021-09-09] MEDS: HYDROmorphone 1 mg/mL INJ 1 mL IVP (20:53)
[2021-09-09] MEDS: ondansetron 2 mg/ML SDV 2 mL 4 MG IVP (20:53)
[2021-09-09 20:56] LABS: Alanine Aminotransferase 9 U/L (0-33); Albumin Level 3.1 g/dL (3.5-5.2); Alkaline Phosphatase 119 IU/L (35-105); Anion Gap 16.6 (5-19); Aspartate Amino Transferase 13 U/L (0-32); Blood Urea Nitrogen 7 mg/dL (6-20); Calcium 7.9 mg/dL (8.5-10.5); Carbon Dioxide 22 mmol/L (22-29); Chloride 104 mmol/L (98-107); Globulin 2.7 g/dL (1.3-4.6); Glomerular Filtration Rate 146.9 mL/min (90-130); Glucose 107 mg/dL (65-115); Osmolality Calculated 286 mOsm/kg (285-295); Potassium 3.6 mmol/L (3.5-5.1); Sodium 139 mmol/L (136-145); Total Bilirubin 0.3 mg/dL (0.15-1.2); Total Protein 5.8 g/dL (6.6-8.7)
[2021-09-09] MEDS: iohexol 350 mg/mL 100 mL Btl IV ×2 (21:05→21:08)
[2021-09-09 22:31] LABS: Urine Appearance Clear (CLEAR); Urine Color Yellow (Yellow)
[2021-09-09 22:32] LABS: Add Urine Microscopic? YES; Bilirubin Urine Neg (Negative); Blood Urine 3+ (Negative); Glucose Urine UA Norm (Normal); Ketones Urine Negative (Negative); Leukocyte Esterase Urine Negative (Negative); Nitrate Urine Negative (Negative); Protein Urine Neg (Negative); Specific Gravity, Urine 1.005 (1.005-1.030); Sulfosalicylic Acid Urine Negative (Negative); Urobilinogen Urine 1 mg/dL (Negative); pH Urine 8 (5-7)
[2021-09-09 22:33] LABS: Add Urine Culture? No; RBC Urine 15-25 /hpf (0-2); Squamous Epithelial Cell Urine 0-4 /hpf (0-5); WBC Urine 0-4 /hpf (0-5)
[2021-09-09 23:00] VITALS: BP 122/86; PULSE 87; RESP 16; O2SAT 100
== END 2021-09-09 23:05 | disposition home or self-care (01) ==
PROVIDERS: Emergency Provider Emergency Medicine
DX: M54.9 Dorsalgia, unspecified (principal)
CPT/HCPCS: 71045; 71275; 74177; 80053; 81001; 85025; 96374; 96375; 99283; J1170; J2405; Q9967

== ENCOUNTER 2021-12-02 14:58 | Emergency (ER) | payer BC, MEDICAID, SELFPAY ==
[2021-12-02 15:34] VITALS: BP 138/76; PULSE 65; RESP 16; TEMP 36.9; O2SAT 99; BMI 38.9
[2021-12-02 17:36] VITALS: BP 138/76; PULSE 65; RESP 16; TEMP 36.9; O2SAT 99
--- NOTE | 2021-12-02 17:57 | ED_ITS ---
HPI - Skin/Abscess/Foreign Bdy General: Chief complaint: Skin/Abscess/Foreign Body Stated complaint: leaking around surgical site Time Seen by Provider: 12/02/21 17:46 History of Present Illness: 26-year-old female comes in today for concerns of possible draining abscess to her incision line. Patient had a C- section about 3 months ago and today she was removing some underwear and noted some drainage to the right inner aspect of her underwear. This was along the area where her incisional line was. Patient reported no pain or discomfort. Review of Systems General: Reports: 10 or more systems reviewed and unremarkable except in HPI and below Card: Denies: chest pain Resp: Denies: dyspnea Skin/Breast: Reports: new lesions [facility] ED PFSH: Medical History (Updated 12/02/21 @ 18:02 by DEO Porter) Psychiatric care Surgical History (Updated 09/24/21 @ 09:15 by Alida Chavarria MD) H/O dilation and curettage Status post delivery 09/06/2021---primary low transverse delivery via Pfannenstiel with bilateral total salpingectomy for sterilization. Perform by Dr. Mackey at [facility] [place] lie Status post tubal ligation 09/06/2021---bilateral total salpingectomy at time of . By Dr. Mackey at [facility] [place] Pathology showed-----> full [id number] pathology Family History Grandmother Clotting disorder maternal Grandfather Heart disease maternal great Denies family history of Colon cancer Ovarian cancer Diabetes Hyperlipidemia Breast cancer Anesthesia complication Bleeding disorder Hypertension Uterine cancer Thyroid condition Stroke Social History (Updated 11/10/21 @ 12:52 by Mc Wade LPN) Smoking and tobacco status: never smoked Second hand smoke exposure: Yes Alcohol intake: current Alcohol intake frequency: holidays/special occasions only Alcohol type: hard liquor Female Reproductive History: Date of last menstrual period: 12/07/20 Physical Exam Const: COMMON NORMALS: alert HENMT: COMMON NORMALS: normocephalic HEAD & SCALP: normocephalic Neck/C-Spine: COMMON NORMALS: full ROM Resp: COMMON NORMALS: normal respiratory effort Cardio: COMMON NORMALS: regular rate RATE: regular rate Extremity: COMMON NORMALS: normal to inspection Neuro: SENSORIUM/ORIENTATION: Yes alert Skin: COMMON NORMALS: no rashes or lesions noted NARRATIVE SKIN EXAM: Well-healed surgical incision line noted. No obvious fluctuance, induration, or draining wound. GENERAL SKIN EXAM: no rashes or lesions noted Course Vital Signs: Vital signs: Vital Signs Temperature 98.4 F 12/02/21 15:34 Pulse Rate 65 12/02/21 15:34 Respiratory Rate 16 12/02/21 15:34 Blood Pressure 138/76 12/02/21 15:34 Pulse Oximetry 99 12/02/21 15:34 MDM - Skin/Abscess/Foreign Bdy Medicial Decision Making 26-year-old female comes in today for concerns of draining wound from surgical incision line. On exam patient had a well healed surgical incision line from her . No obvious fluctuance or abscess or draining lesion was noted. Differential diagnosis includes but not limited to abscess, seroma, folliculitis. I could not identify any obvious abscess or seroma. Patient does shave her bikini line and may have some mild folliculitis and a wound that has drained and healed, or a seroma. There is no signs of infection. I will cover with Bactrim 1 tablet twice a day for 5 days, and recommend follow-up with primary care. Discharge Plan Discharge Patient Disposition: Home Clinical Impression: Folliculitis Condition: Stable Prescriptions: New Bactrim DS 800-160 mg tablet 1 tab PO DAILY 5 Days Qty: 10 0RF No Action One-A-Day -1 27 mg iron- 800 mcg-235 mg capsule 1 cap PO DAILY 0RF (DME) Iron 325 mg tablet See Rx Instructions .Route .MEDSUPPLY 0RF Rx Instructions: Take one by mouth Daily. pyridoxine (vitamin B6) 25 mg tablet 25 mg PO DAILY 0RF phytonadione (vitamin K1) 5 mg tablet 2.5 mg PO DAILY 0RF trazodone 50 mg tablet 100 mg PO .HS PRN (Reason: insomnia) Qty: 60 1RF sertraline [Zoloft] 50 mg tablet 50 mg PO DAILY Qty: 30 1RF docusate sodium 100 mg Capsule 100 mg PO BID PRN (Reason: constipation) Qty: 30 0RF hydrocodone-acetaminophen 5-325 mg tablet 1 tab PO Q6H PRN (Reason: pain) Qty: 14 0RF Discharge Orders: Discharge ED (Routine); Ordered 12/02/21 Ordered By: Mason Mcknight Discharge Diet: Usual diet Discharge Activity: Increase activity as tolerated Patient Instructions: Wound Care (General) Activity Restrictions/Additional Instructions: Drink plenty of fluids. Take antibiotics as directed. Follow-up with primary care for further instruction. Return to ER for new concerns. Coding Level of Care Code ED Associate Scientist for Markel Palacios
[2021-12-02 18:05] VITALS: BP 138/76; PULSE 65; RESP 16; TEMP 36.9; O2SAT 99
== END 2021-12-02 18:07 | disposition home or self-care (01) ==
PROVIDERS: Emergency Provider Nurse Practitioner Family
DX: L73.9 Follicular disorder, unspecified (principal); Z77.22 Contact with and (suspected) exposure to environmental tobacco smoke (acute) (chronic)
CPT/HCPCS: 99283

== ENCOUNTER → 2022-03-02 14:13 | Outpatient (BNVA) | payer BC, MEDICAID, SELFPAY | PROVIDERS: PCP Nurse Practitioner Family; Visit Provider Nurse Practitioner Family | DX: G89.29 Other chronic pain (principal); M54.50 Low back pain, unspecified; M54.6 Pain in thoracic spine | CPT/HCPCS: 72072; 72100; 72220; 80053; 84146; 84439; 84443; 85025 ==